=== PATIENT | male | born 1950 | race Caucasian/White ===

== ENCOUNTER → 2022-03-24 09:00 | Outpatient (CLI) | payer OTHER, SELFPAY ==
--- NOTE | 2022-03-24 | DI.RAD.S_ITS ---
PROCEDURE: FL BARIUM SWALLOW W SPEECH INDICATIONS: Dysphagia, unspecified COMPARISON: None. TECHNIQUE: Examination was conducted in conjunction with speech pathology per standard protocol. In the lateral projection, filming was performed of the patient swallowing. AP projection filming may also be performed with patient swallowing. COMPARISON: FINDINGS: Function: Normal oral preparatory phase. There is some prespillage into the pharynx with multiple consistencies, and a small amount residual. No tariq aspiration. . No laryngotracheal penetration or aspiration. No pathologic vallecular pooling. Morphology: No pathologic cricopharyngeal bar. No strictures. There is delayed passage of contrast and pill into the distal esophagus, partially evaluated. Anterior cervical fusion hardware is present. IMPRESSION: No tariq aspiration. Delayed contrast of contrast and tablet into the distal esophagus, partially evaluated. Please see speech pathologist's note for full details. Dictated by: Bryson Osorio M.D. on 03/24/2022 at 11:25 Approved by: Bryson Osorio M.D. on 03/24/2022 at 11:28
--- NOTE | 2022-03-24 10:44 | ST.SWALLOW ---
Visit Care Team Role Provider Type Jovany Leal MD Attending Provider Non-Staff Primary Care Provider Referring Provider Specialty: Family Practice Address: [address] [place] [address], [id number] Email: Modified Barium Swallow Study TIN FLIPPER Modified Barium Swallow Study Start: 03/24/22 10:01 Freq: Status: Active Protocol: Document 03/24/22 10:01 DEBI (Rec: 03/24/22 10:08 ZS [id number]) Modified Barium Swallow Study Total Time Visit Start Time 09:30 Visit Stop Time 09:50 Total Visit Minutes 20 Setting Setting Outpatient Care Patient Information Identification Type Name Patient History Willard is a 71 year old male who had C4-6 fused and has had difficulty swallowing worsening over the past 6-9 months. Pt reported difficulty swallowing is characterized by frequent coughing and a tickle in his throat (pointed to base of throat, high chest area). Pt stated coughing happens when he is not paying attention to swallow and is happening several times a week to once a day at this point. Subjective Observations Pt arrived on time and ambulated independently. Provided education regarding procedure and process and pt expressed understanding and agreed to participate. Patient Positioning Position View Lat-A/P Imaging Lateral View Textures Administered Trials Presented Thin Liquid via Cup,[place] Liquid via Cup,Regular Textures Oral Phase Source: MBSIMP (TM) (C) Bolus Specific Scoring Grid Lip Closure No Impairment (WNL) Tongue Control During Bolus Hold Mild Impairment Bolus Prep/Mastication No Impairment (WNL) Bolus Transport/Lingual Motion No Impairment (WNL) A/P Lingual Propulsion Delay No Oral Residue Mild Impairment Residue Clearing Minimal Impairment Nasal Regurgitation No Additional Oral Phase Observations No anterior loss of bolus. Minimal anterior loss of bolus during Lateral view tongue hold, however, large quantity of bolus was observed during A /P view prior to swallow initiation, which may indicate posterior loss of bolus that triggers a swallow response with high quantities of liquid . On lateral view, pt exhibited pooling in valleculae and base of tongue residue that was partially due to residue from previous swallow and partially due to posterior loss of bolus during tongue hold. Mastication and a/p propulsion of bolus were timely and efficient. Oral residue present following all swallows, which traveled over base of tongue and pooled in valleculae and pyriforms. Pt cleared residue with a prompted second swallow. Pharyngeal Phase Source: MBSIMP (TM) (C) Bolus Specific Scoring Grid Delayed Initiation of Pharyngeal Swallow Yes: Head of bolus in pyriforms Soft Palate Elevation No Impairment (WNL) Tongue Base Strength/Range of Motion No Impairment (WNL) Residue Along the Tongue Base Yes Clearance of Residue Along Tongue Base WFL Laryngeal Elevation No Impairment (WNL) Anterior Hyoid Movement Moderate Impairment Epiglottic Range of Motion No Impairment (WNL) Vallecular Residue Yes Clearance of Vallecular Residue WFL Laryngeal Vestibular Closure No Impairment (WNL) Pharyngeal Stripping Wave No Impairment (WNL) Pharyngeal Contraction No Impairment (WNL) Posterior Pharyngeal Wall Residue No Upper Esophageal Sphincter Opening No Impairment (WNL) Residue in the Pyriform Sinuses Yes Clearance of Residue in the Pyriform WFL Sinuses Additional Pharyngeal Phase Observations Delayed initiation of pharyngeal swallow, with head of the bolus in the pyriforms. Hyolaryngeal elevation was WNL, though excursion was moderately limited. Limited ROM of hyoid did not appear to impact laryngeal vestibular closure, as epiglottic inversion and laryngeal vestibular closure were WNL. Residue was present after all swallows, with residue originating from the oral cavity and moving to pool in valleculae and pyriforms. Pt observed to cough x1 while residue was observed to be dripping from valleculae to pyriforms, though x-ray was not running at that time, no aspiration was observed, and no residue was observed in trachea following cough. Residue was cleared with a second swallow, prompted by the TIN FLIPPER. No coughing observed with use of double swallow. A/P View Textures Administered Trials Presented Thin Liquid via Cup,Barium Tablet A/P View Observations Pharyngeal Contraction No Impairment (WNL) Esophageal Function Slowed Clearing,Reverse Peristalsis Esophageal Clearance Upright Position Moderate Impairment Additional Observations Pt presented with mild- moderate clearing of residue in esophagus. Residue present in esophagus following lateral trials prior to starting a/p trials. This was not cleared with a drink of water. Single trial of thin barium attempted due to residue reamining. Most of barium moved through esophagus to stomach with mild -moderate residue reamining following swallow. Reverse peristalsis observed and residue was not cleared by the end of the assessment. Barium tablet moved rapidly and then stopped. Continued movement with a second drink of water and cleared esophagus into stomach. Clinical Impressions Dysphagia Type Oropharyngeal dysphagia Findings The pt presents with mild- moderate oropharyngeal dysphagia characterized by posterior loss of bolus during tongue hold, and residue following swallow. Pt does not appear to aspirate during swallow, rather is likely experiencing aspiration/ penetration of residue following swallow. Coughing was reduced with implementation of double swallow. Recommend speech therapy to increase base of tongue strength and pharyngeal strength to improve swallow safety with oral intake. Recommend GI consult due to slowed clearing of bolus through esophagus and reverse peristalsis observed. Rehabilitation Potential Excellent Patient Appropriate for Therapy Yes Recommendations Diet Liquids Order Thin Diet Order Regular Medication Recommendation As Tolerated Aspiration Precautions Recommended Precautions Upright at 90 Degrees,Small Bites/Sips,Double Swallow Treatment Plan Therapy Recommendations Outpatient Speech Therapy, Lingual Exercises Recommended Referrals GI Consult Compensatory Strategies Recommendations Sitting Upright (90 deg), Double Swallow,Small Bites and Sips
== END ==
PROVIDERS: PCP Family Medicine; Referring Provider Family Medicine; Visit Provider Family Medicine
DX: R13.10 Dysphagia, unspecified (principal)
CPT/HCPCS: 74230; 92611

== ENCOUNTER 2022-06-23 10:30 | Outpatient (RCR) | payer OTHER, SELFPAY ==
--- NOTE | 2022-04-25 16:25 | ST.IPCSEOM ---
Visit Care Team Role Provider Type Jovany Leal MD Family Provider Non-Staff Primary Care Provider Specialty: Family Practice Address: [address] [place] [address], [id number] Email: Ceci Holder PA-C Attending Provider Non-Staff Referring Provider Specialty: Medical Address: [facility], [address] [place] [address] [address], [place], [address] Email: Current Diagnoses Dysphagia, unspecified (04/25/22) Speech-Language Pathology Swallow Evaluation GREEN FEED ATTENDANT Clinical Swallow Evaluation Start: 04/25/22 15:54 Freq: Status: Active Protocol: Document 04/25/22 15:55 LNK (Rec: 04/25/22 16:23 LNK [id number]) Clinical Swallow Evaluation Session Time Visit Start Time 14:30 Visit Stop Time 15:30 Total Visit Minutes 60 Visit Information Visit Number 1 Plan of Care Dates 04/25/22-07/26/[address] Ceci De La Torre Reason for Referral dysphagia Setting Assessment Location Outpatient Care Visit Type Note Type Initial evaluation Next Note Type Next Note Type Treatment Note Patient Information Identification Type Name,Date of History Willard is a 71 year old male who had C4-6 fused and has had difficulty swallowing worsening over the past 6-9 months. Pt reported difficulty swallowing is characterized by frequent coughing and a tickle in his throat (pointed to base of throat, high chest area). Pt stated coughing happens when he is not paying attention to swallow and is happening several times a week to once a day at this point. MBSS results (03/24/22) indicated the pt presents with mild-moderate oropharyngeal dysphagia characterized by posterior loss of bolus during tongue hold, and residue following swallow. Pt does not appear to aspirate during swallow, rather is likely experiencing aspiration/ penetration of residue following swallow. Coughing was reduced with implementation of double swallow. Recommend speech therapy to increase base of tongue strength and pharyngeal strength to improve swallow safety with oral intake. Recommend GI consult due to slowed clearing of bolus through esophagus and reverse peristalsis observed. Reported by Patient Other Symptoms Coughing,Difficulty swallowing solids,Food gets stuck,Pain on swallowing Current Diet Regular,Thin liquids Baseline Feeding Method Independent in self-feeding Objective Assessment Mental Status Alert,Responsive,Cooperative Oral Integrity WFL Dentition Within normal limits Lip Function Within normal limits Tongue Function Within normal limits Jaw Function Within normal limits Hard/Soft Palate Function Within normal limits Food and Liquid Trials Position During Assessment Upright (90 degrees) Fatigue/Endurance Endurance WNL Comment PO trials were not performed. Pt education re: normal swallow vs. pt's MBSS results were reviewed. A CG horace of a normal swallow was used to as an example of a normal swallow . Pt then reviewed his MBSS results with the GREEN FEED ATTENDANT. The areas of concern were brought to the pt's attention relative to aspiration risk. Pt indicated that he was appreciative of the information. Safe swallow strategies were then described (i.e., double swallow and effortful swallow). In addition base of tongue and pharyngeal exercises were described (i.e., Misako, Shaker, glottal closure/ adduction) to increase base of tongue strength to improve epiglottal inversion and increase closure strength of the laryngeal vestibule. Written information of safe swallow strategies and instructions for the exercises were provided to the pt. He indicated he understood and agreed with the POC. All questions were answered to the pt's satisfaction. Strategies Attempted Effortful swallow,Other Findings Swallowing Function Oropharyngeal phase dysphagia Severity of Swallow Impairment Mildly impaired Contributing Factors to Swallow Reduced oral strength/ Impairment coordination/sensation, Impaired airway protection, Excessive pharyngeal residue Comments s/p ACDF surgery Prognosis Good Based on Cognitive status,Age,Duration of symptoms/severity Comments Mild aspiration risk Recommendations Instrumental Assessment No Swallowing Treatment Yes Frequency weekly initially then every 3 weeks Recommended Solids Regular Recommended Liquids Thin Safety Precautions/Swallowing Remain upright (90 degrees) Recommendations during all oral intake,Slow rate; swallow between bites, Alternate liquids and solids Medication Recommendations As Tolerated Referrals Recommended Referrals Gastroenterology Education Patient/Caregiver Education Described results of evaluation,Patient expressed understanding of evaluation, Patient expressed agreement with goals & treatment plans, Patient expressed understanding of safety precautions Goals Short-term Goals pt will perform HEP exercises and safe swallow strategies daily as prescribed. Pt will report a decrease of coughing during meals. Pt will undergo a repeat MBSS in 3 months to determine efficacy of linguapharyngeal exercises.
--- NOTE | 2022-04-25 16:26 | ST.OPPOC ---
Physical, Occupational & Speech Therapy At [facility] Visit Care Team Role Provider Type Jovany Leal MD Family Provider Non-Staff Primary Care Provider Address: [address] [place] [address], [place], [address] Ceci Holder PA-C Attending Provider Non-Staff Referring Provider Address: [facility], [address], [place], [address] Speech Pathology Plan of Care Plan of Care Dates 04/25/22-07/26/[address] Ceci De La Torre Patient History Willard is a 71 year old male who had C4-6 fused and has had difficulty swallowing worsening over the past 6-9 months. Pt reported difficulty swallowing is characterized by frequent coughing and a tickle in his throat (pointed to base of throat, high chest area). Pt stated coughing happens when he is not paying attention to swallow and is happening several times a week to once a day at this point. MBSS results () indicated the pt presents with mild-moderate oropharyngeal dysphagia characterized by posterior loss of bolus during tongue hold, and residue following swallow. Pt does not appear to aspirate during swallow, rather is likely experiencing aspiration/penetration of residue following swallow. Coughing was reduced with implementation of double swallow. Recommend speech therapy to increase base of tongue strength and pharyngeal strength to improve swallow safety with oral intake. Recommend GI consult due to slowed clearing of bolus through esophagus and reverse peristalsis observed. Short-term Goals pt will perform HEP exercises and safe swallow strategies daily as prescribed. Pt will report a decrease of coughing during meals. Pt will undergo a repeat MBSS in 3 monthjs to determine efficacy of linguapharyngeal exercises. Comment: Electronically Signed by: FLORINDA Astudillo 04/25/22 2655 If you are in agreement with this Plan of Care, please return a signed and dated copy. I have reviewed this Plan of Care and certify that the skilled therapy services above are required to meet the patient?s needs. Physician Signature Date Printed Name and Credentials Clinical Instructor Signature Printed Name and Credentials
--- NOTE | 2022-05-02 16:45 | ST.IPDYTX ---
Visit Care Team Role Provider Type Jovany Leal MD Family Provider Non-Staff Primary Care Provider Specialty: Family Practice Address: [address] [place] [address], [place], [address] Email: Ceci Holder PA-C Attending Provider Non-Staff Referring Provider Specialty: Medical Address: [facility], [address] [place] [address] [address], [place], [address] Email: RESIDENTIAL COUNSELOR Dysphagia Treatment RESIDENTIAL COUNSELOR Dysphagia Treatment Start: 04/25/22 15:54 Freq: Status: Active Protocol: Document 05/02/22 16:35 LNK (Rec: 05/02/22 16:45 LNK [id number]) Dysphagia Treatment Session Time Visit Start Time 14:30 Visit Stop Time 15:15 Total Visit Minutes 45 Visit Information Visit Number 2 Plan of Care Dates 04/25/22-07/26/22 Setting Assessment Location Outpatient Care Visit Type Note Type Treatment Note Next Note Type Next Note Type Treatment Note Patient Information Identification Type Name,Date of Subjective Observations Pt arrived on time. he is a pleasant man to work with. Treatment Treatment Activities Reviewed swallowing exercises with the pt. He reported that he has been doing all exercises daily. He had questions pertaining to some of the exercises, which were answered to the pt's satisfaction. He also reported that he has become more mindful of his swallowing and a sipping behavior that draws in air when he drinks. He noted that he is working to not do that; a bad habit he stated. Will f/u with pt in 3 weeks Assessment Patient Response to Treatment Good Diet Recommendations Recommendations Continue Current Diet Liquids Order Thin Medication Recommendations As Tolerated Aspiration Precautions Recommended Precautions Upright at 90 Degrees, Effortful Swallow,Double Swallow,Supraglottic Swallow, Prasad Maneuvor Treatment Plan Appropriate for Continued Therapy Yes Dysphagia Goals pt will perform HEP exercises and safe swallow strategies daily as prescribed. Pt will report a decrease of coughing during meals. Pt will undergo a repeat MBSS in 3 months to determine efficay of linguapharyngeal exercises.
--- NOTE | 2022-06-02 11:36 | ST.IPDYTX ---
Visit Care Team Role Provider Type Jovany Leal MD Family Provider Non-Staff Primary Care Provider Specialty: Family Practice Address: [address] [place] [address], [place], [address] Email: Ceci Holder PA-C Attending Provider Non-Staff Referring Provider Specialty: Medical Address: [facility], [address] [place] [address] [address], [place], [address] Email: HEALTH FACILITIES SURVEYOR Dysphagia Treatment HEALTH FACILITIES SURVEYOR Dysphagia Treatment Start: 04/25/22 15:54 Freq: Status: Active Protocol: Document 06/02/22 11:10 LNK (Rec: 06/02/22 11:35 LNK [id number]) Dysphagia Treatment Session Time Visit Start Time 10:30 Visit Stop Time 11:00 Total Visit Minutes 30 Visit Information Visit Number 3 Plan of Care Dates 04/25/22-07/26/22 Setting Assessment Location Outpatient Care Visit Type Note Type Treatment Note Next Note Type Next Note Type Treatment Note Patient Information Identification Type Name,Date of Subjective Observations Pt arrived on time. he is a pleasant man to work with. Treatment Treatment Activities Reviewed swallowing exercises with the pt. He reported that he has been doing all exercises daily. He had questions pertaining to some of the exercises, which were answered to the pt's satisfaction. He also reported that he has become more mindful of his swallowing and lifelong bad habits (i. e, talking when eating, guzzling liquids, distracted, etc.) that have resulted in significantly reducing the choking episodes when swallowing the wrong way. Will f/u with pt in 3 weeks. Assessment Patient Response to Treatment Good Diet Recommendations Recommendations Continue Current Diet Liquids Order Thin Diet Order Regular Medication Recommendations As Tolerated Aspiration Precautions Recommended Precautions Upright at 90 Degrees, Effortful Swallow,Double Swallow,Supraglottic Swallow, Prasad Maneuvor Treatment Plan Appropriate for Continued Therapy Yes Dysphagia Goals pt will perform HEP exercises and safe swallow strategies daily as prescribed. Pt will report a decrease of coughing during meals. Pt will undergo a repeat MBSS in 3 months to determine efficacy of linguapharyngeal exercises. Referrals/Other Recommended Referrals GI Consult
--- NOTE | 2022-06-23 11:08 | ST.IPDYTX ---
Visit Care Team Role Provider Type Jovany Leal MD Family Provider Non-Staff Primary Care Provider Specialty: Family Practice Address: [address] [place] [address], [place], [address] Email: Ceci Holder PA-C Attending Provider Non-Staff Referring Provider Specialty: Medical Address: [facility], [address] [place] [address] [address], [place], [address] Email: BATTERY HAND Dysphagia Treatment BATTERY HAND Dysphagia Treatment Start: 04/25/22 15:54 Freq: Status: Active Protocol: Document 06/23/22 10:34 LNK (Rec: 06/23/22 11:08 LNK [id number]) Dysphagia Treatment Session Time Visit Start Time 10:30 Visit Stop Time 11:00 Total Visit Minutes 30 Visit Information Visit Number 3 Plan of Care Dates 04/25/22-07/26/22 Setting Assessment Location Outpatient Care Visit Type Note Type Treatment Note Next Note Type Next Note Type Treatment Note Patient Information Identification Type Name,Date of Subjective Observations Pt arrived on time. he is a pleasant man to work with. Treatment Treatment Activities Reviewed swallowing exercises with the pt. He reported that he has been doing all exercises daily. He had questions pertaining to some of the exercises, which were answered to the pt's satisfaction. He also reported that he has become more mindful of his swallowing . Pt has noted that he is able to self-correct if he has something in his throat that may cause him to cough. Pt will be discharged from - Goals met Assessment Patient Response to Treatment Good Diet Recommendations Recommendations Continue Current Diet Liquids Order Thin Diet Order Regular Medication Recommendations As Tolerated Aspiration Precautions Recommended Precautions Upright at 90 Degrees, Effortful Swallow,Double Swallow,Supraglottic Swallow, Prasad Maneuvor Treatment Plan Appropriate for Continued Therapy Yes Dysphagia Goals pt will continue HEP exercises and safe swallow strategies daily as prescribed. Pt will maintain a decrease of coughing during meals. Referrals/Other Recommended Referrals GI Consult
--- NOTE | 2022-06-23 11:11 | ST.IPDYTX ---
Visit Care Team Role Provider Type Jovany Leal MD Family Provider Non-Staff Primary Care Provider Specialty: Family Practice Address: [address] [place] [address], [address] Email: Ceci Holder PA-C Attending Provider Non-Staff Referring Provider Specialty: Medical Address: [facility], [address] [place] [address] [address], [place], [address] Email: TITLE CAMERA OPERATOR Dysphagia Treatment TITLE CAMERA OPERATOR Dysphagia Treatment Start: 04/25/22 15:54 Freq: Status: Active Protocol: Document 06/23/22 11:09 CAROLYNK (Rec: 06/23/22 11:11 LNK [id number]) Dysphagia Treatment Setting Assessment Location Outpatient Care Visit Type Note Type Discharge Summary Patient Information Identification Type Name,Date of Subjective Observations Pt arrived on time. he is a pleasant man to work with. Treatment Treatment Activities Reviewed swallowing exercises with the pt. He reported that he has been doing all exercises daily. He had questions pertaining to some of the exercises, which were answered to the pt's satisfaction. He also reported that he has become more mindful of his swallowing . Pt has noted that he is able to self-correct if he has something in his thraot that may cause him to cough. Pt will be discharged from ST - Goals met Aspiration Precautions Recommended Precautions Upright at 90 Degrees, Effortful Swallow,Double Swallow,Supraglottic Swallow, Prasad Maneuvor Treatment Plan Appropriate for Continued Therapy No Therapy Recommendations Discharge from therapy- Goals Met Referrals/Other Recommended Referrals GI Consult
== END 2022-06-25 09:34 | disposition home or self-care (01) ==
LOC: SP 10:30
PROVIDERS: Family Provider Family Medicine; PCP Family Medicine; Referring Provider Physician Assistant; Visit Provider Physician Assistant
DX: R13.10 Dysphagia, unspecified (principal)
CPT/HCPCS: 92526; 92610

== ENCOUNTER → 2023-07-03 12:36 | Outpatient (CLI) | payer OTHER, SELFPAY ==
--- NOTE | 2023-07-03 | DI.CT.S_ITS ---
PROCEDURE: CT LE LT W CON INDICATIONS: FOOT PAIN TECHNIQUE: Noncontrast 1-1.5 mm axial sections acquired from above the tibiotalar joint to the bottom of the calcaneus, with coronal and sagittal reformats. COMPARISON: [facility] [place], CR, XR ANKLE 3 VIEWS WEIGHT BEARING BILATERAL, 06/23/2023, 13:29. FINDINGS: Image quality: Excellent. Bones: No acute osseous fracture or dislocation. Moderate degenerative changes are seen at the mortise joint with subchondral cystic changes and marginal osteophytes. There is hindfoot valgus alignment. Severe degenerative changes are seen at the subtalar joint with subchondral sclerosis, subchondral cystic changes, marginal osteophyte formation. A few ossifications are seen lateral to the subtalar joint. Relatively mild degenerative changes are seen in the midfoot. There is severe 1st metatarsophalangeal and metatarsal sesamoid osteoarthrosis. Scattered degenerative changes are seen at the interphalangeal joints of the toes. Soft tissues: Moderate tibiotalar effusion with suspected ossified intra-articular loose body anteriorly. The articular cartilages, ligaments, and tendons are not well evaluated with CT. However, there is suspected anterior subluxation of the peroneal tendons. The visualized musculature demonstrates mild diffuse grade 2 fatty infiltration. IMPRESSION: 1. Severe subtalar osteoarthrosis. Small ossifications lateral to the subtalar joint may represent loose bodies or heterotopic calcifications. 2. Moderate mortise joint osteoarthrosis with a moderate joint effusion and a few small ossified intra-articular loose bodies. 3. Hindfoot valgus alignment. 4. Severe 1st metatarsophalangeal osteoarthrosis. 5. Suspected anterior subluxation of the peroneus brevis and longus tendons. Approved by: Douglas Cassidy M.D. on 07/05/2023 at 10:26
--- NOTE | 2023-07-03 | DI.CT.S_ITS ---
PROCEDURE: CT LE RT WO CON INDICATIONS: FOOT PAIN TECHNIQUE: Noncontrast 1-1.5 mm axial sections acquired from above the tibiotalar joint to the bottom of the calcaneus, with coronal and sagittal reformats. COMPARISON: [facility] [place], CR, XR ANKLE 3 VIEWS WEIGHT BEARING BILATERAL, 06/23/2023, 13:29. FINDINGS: Image quality: Excellent. Bones: No acute osseous fracture. Postsurgical changes are seen from mortise joint arthrodesis with multiple metal screws. The distal portion of a fractured screw is seen within the distal tibia. The proximal component of the screw appears to have been removed. A transsyndesmotic screw is seen that is intact. There is solid osseous fusion across the mortise joint. Oblique lucency is seen at the distal fibular shaft with corticated margins, consistent with prior fracture or osteotomy with nonunion. There is chronic hindfoot valgus. Severe degenerative changes are seen at the subtalar joint with subchondral sclerosis, subchondral cystic changes, and remodeling of the articular surfaces. Moderate talonavicular degenerative changes. Moderate to severe 1st metatarsophalangeal and metatarsal sesamoid osteoarthrosis. Scattered degenerative changes are seen at the interphalangeal joints of the toes. Soft tissues: Multiple calcifications are seen lateral to the posterior subtalar facet. No significant effusion. The articular cartilages, ligaments, and tendons are not well evaluated with CT. The visualized musculature demonstrates mild grade 2 fatty infiltration. IMPRESSION: 1. Postsurgical changes from prior mortise joint arthrodesis with solid osseous fusion across the joint line. Oblique lucency with corticated margins through the distal fibular shaft may be related to prior fracture or surgery with chronic nonunion. 2. Severe subtalar osteoarthrosis. Multiple ossifications are seen lateral to the subtalar joint that may represent loose bodies or heterotopic ossifications. 3. Hindfoot valgus. 4. Moderate to severe 1st metatarsophalangeal osteoarthrosis. Approved by: Douglas Cassidy M.D. on 07/05/2023 at 10:27
== END ==
LOC: CT 12:37
PROVIDERS: Family Provider Family Medicine; PCP Family Medicine; Referring Provider Orthopaedic Surgery Foot and Ankle Surgery; Visit Provider Orthopaedic Surgery Foot and Ankle Surgery
DX: M19.071 Primary osteoarthritis, right ankle and foot (principal); M19.072 Primary osteoarthritis, left ankle and foot; M21.072 Valgus deformity, not elsewhere classified, left ankle; M21.071 Valgus deformity, not elsewhere classified, right ankle; M25.571 Pain in right ankle and joints of right foot; M79.672 Pain in left foot; Z98.1 Arthrodesis status
CPT/HCPCS: 73700

== ENCOUNTER → 2023-07-11 11:58 | Outpatient (CLI) | payer OTHER, SELFPAY ==
[2023-07-11 12:35] LABS: Add Manual Diff / Slide Review NO; Basophils Absolute Auto 0 /uL (0-100); Basophils Percent Auto 0.8 % (0-2); Eosinophils Absolute Auto 100 /uL (0-450); Eosinophils Percent Auto 2.8 % (2-4); Hemoglobin 15.8 g/dL (13.5-17.5); Lymphocytes Absolute Auto 900 /uL (1100-4500); Lymphocytes Percent Auto 21.9 % (25-40); Mean Corpuscular HGB Conc 35.8 % (30-36); Mean Corpuscular Hemoglobin 31.8 PG (26-34); Mean Corpuscular Volume 88.9 fL (80-100); Monocytes Absolute Auto 400 /uL (0-900); Monocytes Percent Auto 10.9 % (3-14); Neutrophils Absolute Auto 2600 /uL (1500-7000); Neutrophils Percent Auto 63.6 % (50-75); Platelet Count 196 X10^3/uL (150-400); Red Blood Cell Count 4.96 X10^6/uL (4.5-5.9); Red Cell Distribution Width 13.9 % (11.6-14.8); White Blood Cell Count 4.1 X10^3/uL (4.5-11.0)
[2023-07-11 12:48] LABS: Hemoglobin A1C% w Est Avg Glu 4.5 % (4.0-6.0)
[2023-07-11 15:00] LABS: BUN Creatinine Ratio 30.1 (6-22); Blood Urea Nitrogen 28 mg/dL (9-20); Calcium 9.8 mg/dL (8.4-10.2); Carbon Dioxide 26 mmol/L (22-32); Chloride 106 mmol/L (98-107); Estimated Glomerular Filt Rate > 60 mL/min (>60); Glucose 92 mg/dL (80-110); HEMOLYSIS < 15 (0-50); Sodium 140 mmol/L (137-145)
== END ==
LOC: LAB 11:59
PROVIDERS: Family Provider Family Medicine; PCP Family Medicine; Referring Provider Orthopaedic Surgery Foot and Ankle Surgery; Visit Provider Orthopaedic Surgery Foot and Ankle Surgery
DX: Z01.818 Encounter for other preprocedural examination (principal); Z01.812 Encounter for preprocedural laboratory examination; R73.9 Hyperglycemia, unspecified
CPT/HCPCS: 36415; 80048; 83036; 85025; 93005

== ENCOUNTER 2023-10-07 09:50 | Day surgery (SDC) | payer OTHER, SELFPAY ==
[2023-10-05 10:48] VITALS: BMI 26.7
[2023-10-07] VITALS (8 sets, daily range): BP systolic 95–117; BP diastolic 65–78; PULSE 70–87; RESP 12–16; TEMP 36.3–36.9; O2SAT 94–98; BMI 26.7
--- NOTE | 2023-10-07 | DI.RAD.S_ITS ---
PROCEDURE: XR FOOT LT 2V INDICATIONS: INTRA TECHNIQUE: Low resolution intraoperative fluoroscopic spot films COMPARISON: None. FINDINGS: Low resolution intraoperative fluoroscopic spot films show threaded screws traversing a calcaneal fracture IMPRESSION: 1. Fluoroscopic guidance Approved by: Guy Waters M.D. on 10/07/2023 at 19:44
[2023-10-07] MEDS: LACTATED RINGERS 1,000 ML 42 ML IV ×2 (11:01→14:19)
--- NOTE | 2023-10-07 11:44 | PM.PREOP ---
Pre-operative Note Interval Note History & Physical reviewed/Exam performed by Physician: Yes Changes to H&P: No
--- NOTE | 2023-10-07 12:30 | P.OP_ITS ---
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 He has a remote history of a right ankle fusion with [facility] that had to have a revision fusion after a nonunion. He has developed a worsening pes planovalgus and left subtalar arthritis on the left side. He is failed conservative treatment with arch supports and braces. The risks and benefits of the procedure have been discussed with the patient and given the opportunity to ask questions. The risks of surgery include but are not limited to infection, malunion, nonunion, persistence of pain, damage to nerves and blood vessels, posttraumatic arthritis, DVT, PE, coardiopulmonary complications and . The patient expressed a thorough understanding of the risks and benefits of surgery and has elected to proceed. Consent was signed in the office During the operation, the services of a physician surgical lead were medically indicated and necessary to provide the exposure of the operative site for the surgical procedure and to maintain the limb in a proper position to carry out the operation safely and efficiently. Without a qualified shipping and receiving assistant being present this would extended the operative procedure and made the procedure technically more difficult to perform. Surgeon: Autumn Ott Ramp Flight Attendant: Nick Brewer Anesthesia Type: Spinal and Local Operative Notes Findings: Extensive subtalar arthritis was rigid pes planovalgus deformity and Achilles contracture. Severe valgus with sub fibular impingement. Achilles lengthening was performed in order to correct to neutral. On reduction of subtalar joint there was still residual valgus therefore separate medializing calcaneal osteotomy was completed to obtain appropriate hindfoot alignment. Stability was achieved with 7.0 screws from the set Closure Type: primary Specimen(s): none sent Prosthetic devices, grafts, tissues, transplants, or devices: [place] 28 7.0 headed cannulated screws fully threaded 80 mm and 84 mm [place] 287.0 headless long thread cannulated screw 90 mm Estimated Blood Loss (mL): 150 Blood products transfused: none Tourniquet time (min): 97 Procedure in detail: Patient was seen in the preoperative area the site of surgery marked informed consent confirmed. The patient was brought back to the operating room by the anesthesia team and positioned. Spinal anesthetic was administered. The patient was then positioned into the lateral decubitus position on the beanbag with the left side up. All bony prominences well padded. A well-padded axillary roll was placed. A well-padded thigh tourniquet was placed. down leg had an SCD on and was well padded. The right lower extremity was prepped and draped in standard sterile fashion a formal time-out procedure was performed confirming the patient's side and site of surgery administration of appropriate preoperative antibiotic. All were in agreement. Attention turned to the left lower extremity the Esmarch was used to exsanguinate the extremity and the tourniquet raised to 250 mm of mercury. The deformity was a rigid pes planovalgus. The foot was held in dorsiflexion and 3 small incisions were made along the Achilles tendon for the Achilles tendon lengthening. Achilles tendon lengthenin separate posterior incisions were made at 2, 4 and 6 cm above the calcaneal insertion of the Achilles. The distal and proximal incisions were made with a frantz section to the lateral side and the central incision was made with a frantz section of the Achilles tendon to the medial side. This was done under dorsiflexion tension creating a palpable and audible stretch/lengthening of the Achilles tendon. Subtalar fusion. Attention was then turned to the lateral foot. A curved incision was taken from just posterior to the fibula along the distal fibula and sinus tarsi towards the base of the 4th metatarsal. This was taken down through the skin subcutaneous tissue. This was extended more proximally than normal due to the severely tendinosis peroneal tendons where it tendinotic, torn and chronically subluxed. The peroneal tendon sheath was opened the tendinotic peroneal tendons were exposed and excised. Distally the extensor digitorum brevis was elevated and reflected distally. The sinus tarsi was then entered. Suppressive dissection was carried out in the sinus tarsi. Loose ossicles were removed. A combination of osteotomes and curette was used to prepare the subtalar joint which was severely eburnated. The K-wire distractor as well as lamina spreaders were applied to reach all the way medially to the FHL. This was prepped with a curette osteotomes followed by the bur and then finally the prep drill and fish scale are to good cancellous bone. Trial reductions were done medializing the calcaneus and pinning in place. Alignment was checked and was felt to still have some excessive valgus therefore the decision was made for a medializing calcaneal osteotomy. That is detailed below. Once the medializing calcaneal osteotomy was completed attention was then returned to the subtalar joint and the 5 cc of DBM putty was applied to the talus and calcaneus. The calcaneus was reduced as medially as possible and fixed up with K-wires and checked under fluoroscopy. Once this was satisfactory the wires were overdrilled and the subtalar fusion was fixed with 1 proximal to distal 7.0 long thread headless screw from the paragon 28 set and from distal to proximal with a fully-threaded lag by technique 7.0 headed paragon 28 cannulated screw. Medialized and calcaneal osteotomy: Due to residual valgus and medialized and calcaneal osteotomy was completed to achieve neutral hindfoot alignment. Separate incision was made posterior to the subtalar incision this was made along the calcaneal tuberosity as far posterior as possible. Care was taken to avoid the sural nerve. Dissection was taken down to the level of the lateral wall of the calcaneus and periosteum was elevated. K-wire was directed across the calcaneus as a guide. Baby Homans were placed proximally and distally and a large saw was used to make the calcaneus osteotomy. This was taken to the level of the medial cortex which was then completed using an osteotome. Periosteum was elevated medially and the osteotomy mobilized about 4 mm medially and then pinned. Alignment radiographs were checked with intraoperative C-arm that demonstrated appropriate correction of the hindfoot alignment to neutral. This was then pinned with K-wire overdrilled and secured with a fully-threaded lag by technique cannulated screw from the paragon 28 set. Once this was achieved final fluoroscopic x-rays in lateral, axial and AP ankle confirmed appropriate placement of hardware without prominence. Once this was completed tourniquet was released hemostasis was achieved. Wounds were irrigated and closed with 2-0 Vicryl 3-0 Vicryl 4-0 Monocryl and 3-0 nylon suture. 30 cc of 0.25% Marcaine with epinephrine was injected as local anesthetic. A well-padded Petersen style bulky splint was applied with you and posterior slabs in neutral position. The patient was awoken from anesthesia and taken to recovery room in good condition there were no immediate complications from this procedure. All counts were correct. Complications: none Post-operative Condition: stable Disposition: PACU Plan for aftercare: Toe-touch or nonweightbearing on the left lower extremity. Elevate heart level or above as much as possible after surgery to help with swelling. Keep splint clean dry and intact. Take medications as prescribed. We will take aspirin 325 mg daily for DVT prophylaxis. Follow up as scheduled in Orthopedic surgery Clinic.
[2023-10-07] MEDS: CEFAZOLIN 2 GM/100 ML PREMIX 100 ML IV (12:55)
[2023-10-07] MEDS: BUPIVACAINE 0.25% (PF) 30 ML, EPINEPHrine 0.15 MG INJ (13:11)
--- NOTE | 2023-10-07 13:15 | SUR.OPER ---
Lateral on padded OR bed with raphael bag positioner, head on pillow, gel axillary roll in place, bottom leg bent with gel pad under knee to foot, upper leg straight and supported with pillows ON FIELD. ARMS secured on padded arm board WITH PILLOWS IN BETWEEN. Safety belt at hip, tape over blanket securing lower RIGHT leg.
[2023-10-07] MEDS: TAMSULOSIN 0.4 MG CAPSULE PO (17:59)
--- NOTE | 2023-10-07 18:16 | SUR.PHASEII ---
1730 pt unable to urinate bladder scan showed 750ml MD notified straight cath performed with 800ml output of clear yellow urine pt tolerated well 1800 discussed plan for safe discharge including risk of continued urinary retention, safely getting into and around his home tonight, pt and spouse verbalize understanding. Pt was able to transfer to wheelchair and to car independently, distal cms intact to injured ext
== END 2023-10-07 18:56 | disposition home or self-care (01) ==
LOC: OR 11:49 → AC 16:15
PROVIDERS: Family Provider Family Medicine; PCP Family Medicine; Referring Provider Orthopaedic Surgery Foot and Ankle Surgery; Visit Provider Orthopaedic Surgery Foot and Ankle Surgery
PROC: (CPT 27870; principal; 2023-10-07 11:45)
DX: M19.072 Primary osteoarthritis, left ankle and foot (principal); M21.072 Valgus deformity, not elsewhere classified, left ankle; M67.02 Short Achilles tendon (acquired), left ankle
CPT/HCPCS: 28725; 27685; 28300; 73620; 76000; 93010; C1776; C1713; J0171; J0690; J1100; J2405; J2704; J3490

== ENCOUNTER 2024-03-02 16:59 | Observation (INO) | payer OTHER, SELFPAY ==
[2024-03-02] VITALS (10 sets, daily range): BP systolic 106–136; BP diastolic 69–92; PULSE 60–79; RESP 12–22; TEMP 36.1–36.4; O2SAT 97–99; BMI 25.7
--- NOTE | 2024-03-02 | DI.RAD.S_ITS ---
PROCEDURE: XR ANKLE LT MIN 3V INDICATIONS: DEBRIDEMENT WITH HARDWARE REMOVAL TECHNIQUE: Three intraoperative fluoroscopic spot views of the ankle were acquired. COMPARISON: None. FINDINGS: Views of the ankle demonstrate grossly normal mortise alignment. Irregularity of the subtalar joints but grossly normal hindfoot bone alignment. IMPRESSION: Normal bone alignment without unexpected fracture. Dictated by: Nereyda Cesar M.D. on 03/02/2024 at 17:06 Approved by: Nereyda Cesar M.D. on 03/02/2024 at 17:06
[2024-03-02] MEDS: VANCOMYCIN 1,000 MG/200 ML PIGGYBACK 200 MG IV (13:09)
[2024-03-02] MEDS: LACTATED RINGERS 1,000 ML 42 ML IV ×2 (13:09→16:20)
[2024-03-02 13:14] LABS: Add Manual Diff / Slide Review NO; Basophils Absolute Auto 0 /uL (0-100); Basophils Percent Auto 0.7 % (0-2); Eosinophils Absolute Auto 100 /uL (0-450); Eosinophils Percent Auto 2.5 % (2-4); Hematocrit 39.7 % (41-53); Hemoglobin 13.9 g/dL (13.5-17.5); Lymphocytes Absolute Auto 600 /uL (1100-4500); Lymphocytes Percent Auto 13.9 % (25-40); Mean Corpuscular HGB Conc 34.9 % (30-36); Mean Corpuscular Hemoglobin 29.5 PG (26-34); Mean Corpuscular Volume 84.4 fL (80-100); Monocytes Absolute Auto 500 /uL (0-900); Monocytes Percent Auto 12.4 % (3-14); Neutrophils Absolute Auto 3100 /uL (1500-7000); Neutrophils Percent Auto 70.5 % (50-75); Platelet Count 245 X10^3/uL (150-400); Red Cell Distribution Width 14.7 % (11.6-14.8); White Blood Cell Count 4.4 X10^3/uL (4.5-11.0)
[2024-03-02 13:28] LABS: BUN Creatinine Ratio 25.6 (6-22); Blood Urea Nitrogen 22 mg/dL (9-20); C-Reactive Protein Quant 3.4 mg/dL (<1.0); Calcium 9.4 mg/dL (8.4-10.2); Carbon Dioxide 26 mmol/L (22-32); Chloride 103 mmol/L (98-107); Estimated Glomerular Filt Rate > 60 mL/min (>60); Glucose 86 mg/dL (80-110); HEMOLYSIS < 15 (0-50); Sodium 138 mmol/L (137-145)
[2024-03-02 13:31] LABS: Erythrocyte Sedimentation Rate 20 MM/HR (0-15)
--- NOTE | 2024-03-02 14:17 | PM.PREOP ---
Pre-operative Note Interval Note History & Physical reviewed/Exam performed by Physician: Yes Changes to H&P: No
[2024-03-02] MEDS: CEFAZOLIN 2 GM/100 ML PREMIX 100 ML IV (14:49)
--- NOTE | 2024-03-02 15:27 | SUR.OPER ---
Supine on padded OR bed, head on pillow, arms secured on padded arm boards at <90 degrees abduction, legs uncrossed, safety belt at thigh, tape over blanket over non-op leg
[2024-03-02] MEDS: VANCOMYCIN 1,000 MG VIAL 1000 MG TOP (15:45)
[2024-03-02] MEDS: BUPIVACAINE 0.25% (PF) 30 ML, EPINEPHrine 0.15 MG INJ (16:00)
--- NOTE | 2024-03-02 16:51 | P.OP_ITS ---
Operative Date/Time/Diagnoses Date of procedure: 03/02/24 Time of procedure: 15:00 Pre-op diagnosis: Arthritis left subtalar joint, infected hardware left lower extremity, osteomyelitis Post-op diagnosis: same Procedure & Clinicians Procedure: Removal of hardware deep implant CPT 77864 Removal of hardware deep implant CPT 08668 +59 separate incision Manual prep and insertion of the drug delivery device antibiotic beads CPT code 04884 Same procedure as scheduled: Yes Indications: Patient was a 73-year-old male status post subtalar fusion October 07, 2023. During recovery he had a small area that opened up near his minimally invasive calcaneal osteotomy this was cultured at an outside hospital which was [facility]. He was treated initially on Keflex then also had Bactrim and doxy this cleared up and he was doing reasonably well. He presented on 03/01 with a new acute increased swelling and pain over several days. He denied any fevers or chills. He was found to have a abscess at the level of the sinus tarsi without any wounds or erythema but there was fluctuance and purulence on aspiration. Radiographs demonstrated lucency around the screws concerning for loosening.. He was indicated for surgery for hardware removal and irrigation and debridement. The risks and benefits of the procedure have been discussed with the patient and given the opportunity to ask questions. The risks of surgery include but are not limited to infection, malunion, nonunion, persistence of pain, damage to nerves and blood vessels, posttraumatic arthritis, DVT, PE, coardiopulmonary complications and . The patient expressed a thorough understanding of the risks and benefits of surgery and has elected to proceed. Consent was signed/ During the operation, the services of a physician surgical supplies sterilizer were medically indicated and necessary to provide the exposure of the operative site for the surgical procedure and to maintain the limb in a proper position to carry out the operation safely and efficiently. Without a qualified clinical services assistant being present this would extended the operative procedure and made the procedure technically more difficult to perform. Surgeon: Autumn Ott Mortgage Field Inspector: Nick Brewer Anesthesia Type: General and Local Operative Notes Findings: Abscess lateral sinus tarsi incision tracking deep to the sinus tarsi. No wounds. No erythema. Calf soft. Three incisions were made over the left foot the 1st was reopening the sinus tarsi incision to perform the debridement of skin peroneal tendon subcutaneous tissue and bone at the sinus tarsi. Separate medial dorsal incision was made to remove the anterior to posterior screw and this bone tunnel was curetted and then later antibiotic beads were placed within the bone tunnel. A 3rd incision was made at the plantar heel for removal of the 2 posterior to anterior screws these were also debrided and curetted thoroughly irrigated and antibiotic beads were placed within the bone tunnels. Closure Type: primary Specimen(s): other Prosthetic devices, grafts, tissues, transplants, or devices: Tissue and abscess fluid sent for culture and bacterial PCR Estimated Blood Loss (mL): 30 Blood products transfused: none Tourniquet time (min): 60 Procedure in detail: Patient was seen in the preoperative area the site of surgery was marked informed consent confirmed. This was the left foot and ankle. The patient was then brought back to the operating room by the anesthesia team positioned supine on operative table. Anesthetic was administered. The left lower extremity was prepped and draped in the standard sterile fashion formal time-out procedure was performed confirming the patient's side and site of surgery administration of appropriate antibiotic after cultures. After cultures were sent patient received 1 g of vancomycin and 2 g of Ancef Attention was turned to the left foot. There is a fluctuant abscess at the sinus tarsi area sinus tarsi incision was reopened revealing the abscess. Cultures were taken. This tracked down to the sinus tarsi deep tissue was removed and sent for bacterial PCR. Sinus tarsi was debrided as well as part of a torn remnant of the peroneus brevis tendon was also excised. Once the debridement of skin, subcutaneous tissue tendon and bone at the sinus tarsi was completed with curette and rongeur and sharp blade for excisional debridement of the sinus tarsi contents the wound was irrigated with 3 L of saline using cysto tubing. Once this was completed a clean drape was placed gloves were changed. Separate incision was made dorsal medially to reach the anterior to posterior screw this was carefully dissected down to level of the talus and C-arm fluoroscopy was used to find the trajectory of the screw and a K-wire was placed into the screw then a screwdriver was used over this to remove the anterior to posterior screw. A separate incision was made on the plantar heel transversely to reach both of the posterior to anterior 7.0 paragon 28 monster screws. Careful dissection was taken down to the screw heads and again using the same technique of using the K- wire into the cannulated screws and then the screw local company intermodal truck driver over that for removal all 3 screws from the subtalar fusion removed in total. There was no broken hardware. All hardware was confirmed removed on AP and lateral fluoroscopic imaging. At this point another 3 L of saline was used to irrigate all of the 3 incisions again. And again the bone tunnels from the screws were curetted. After this was complete a mixture of 3 cc of the stimulant calcium dissolvable antibiotic beads was mixed with vancomycin this was made into small beads as well as antibiotic rods. The rods were placed into the screw tunnels and the beads into the sinus tarsi. Once this was complete deep closure was done with 2-0 PDS subcutaneous with 4-0 Monocryl and 3-0 nylon suture. Tourniquet was released prior to final closure to confirm hemostasis. Local anesthetic was injected for local anesthesia. The dressing was placed with Xeroform gauze Webril and an Yosef wrap. The drapes removed. The patient was placed into his postoperative boot awoken from anesthesia and taken to the recovery room in good condition there were no immediate complications with the procedure. Counts were correct. Complications: none Post-operative Condition: stable Disposition: PACU Plan for aftercare: Weightbear as tolerated in the boot. Keep dressing clean dry and intact. Follow up as scheduled in Orthopedic Clinic for wound check. We will tailor antibiotics based on cultures. Plan for PICC line and antibiotics. Aspirin 81 mg b.i.d. while weight-bearing in the boot. It hurts to weightbear may use a walker, cane, walking stick or knee scooter We will start on empiric vancomycin and Zosyn until cultures return
[2024-03-02] MEDS: OXYCODONE IR 5 MG TABLET PO (16:52)
[2024-03-02] MEDS: ACETAMINOPHEN 325 MG TABLET 650 MG PO (16:52)
--- NOTE | 2024-03-02 16:59 | DI.CT.S_ITS ---
PROCEDURE: CT LE LT W CON INDICATIONS: subtalar arthrodesis infection s/p hardware fusion TECHNIQUE: Noncontrast 1-1.5 mm axial sections acquired from above the tibiotalar joint to the bottom of the calcaneus, with coronal and sagittal reformats. COMPARISON: [facility], CR, XR ANKLE 3+ VIEWS LEFT, 12/10/2023, 11:00. [facility] [place], CR, XR FOOT 3 VIEWS WEIGHT BEARING LEFT, 03/01/2024, 11:47. [facility], CT, CT LE LT WO CON, 07/03/2023, 12:57. [facility], CR, XR ANKLE LT MIN 3V, 03/02/2024, 15:36. [facility], CT, CT LE RT WO CON, 07/03/2023, 12:57. FINDINGS: Image quality: Excellent. Bones: Patient is status post interval removal of previously noted subtalar fusion hardware with likely packing material within the screw tracts suggest clinical correlation. Osteoarthritic changes are noted throughout left foot more notably involving hindfoot joints. No acute fracture or dislocation. Erosive changes adjacent to subtalar joint which may represent osteomyelitis secondary to clinical history of joint infection. No other area of bony erosive changes are noted. No suspicious bony lesions. Soft tissues: Subcutaneous emphysema along anterior aspect of distal lower leg and ankle joint is seen extending to dorsal aspect of midfoot. Small amount of air is also seen within tibiotalar joint and subtalar joint as well as within screw tracts. Finding likely represent iatrogenic air introduced during the surgery. No discrete drainable peripherally enhancing abscess collection is noted. No gross full-thickness ankle tendon rupture. IMPRESSION: 1. Postsurgical changes from interval subtalar fusion hardware removal. Possible packing material within screw tracts suggest clinical correlation. 2. Soft tissue swelling and edema in hindfoot soft tissue with subcutaneous and intra-articular emphysema in midfoot and hindfoot as described above. No discrete drainable peripherally enhancing abscess collection. 3. Questionable erosive changes involving subtalar joint, osteomyelitis cannot be excluded given patient's history. Osteoarthritis throughout left foot. No acute fracture or dislocation. Dictated by: Christophe De La Vega M.D. on 03/02/2024 at 20:17 Approved by: Christophe De La Vega M.D. on 03/02/2024 at 20:22
[2024-03-02] MEDS: SODIUM CHLORIDE 0.9% 1,000 ML 100 ML IV (18:18)
[2024-03-02] MEDS: PIPERACILLIN/TAZO 4.5 GM in SODIUM CHLORIDE 0.9% 100 ML IV (18:23)
[2024-03-02] MEDS: FLECAINIDE 100 MG TABLET PO (21:01)
[2024-03-02] MEDS: SENNOSIDES 8.6 MG TABLET 17.2 MG PO (21:01)
[2024-03-02] MEDS: ASPIRIN EC 81 MG TABLET PO (21:01)
[2024-03-02] MEDS: DOCUSATE 100 MG CAPSULE PO (21:01)
[2024-03-02] MEDS: PIPERACILLIN/TAZO 3.375 GM in SODIUM CHLORIDE 0.9% 100 ML IV (22:57)
[2024-03-03] MEDS: ACETAMINOPHEN 325 MG TABLET 650 MG PO ×3 (00:48→14:32)
[2024-03-03] MEDS: OXYCODONE IR 5 MG TABLET PO ×6 (00:49→23:52)
[2024-03-03] MEDS: SODIUM CHLORIDE 0.9% 1,000 ML 100 ML IV ×2 (03:50→13:54)
[2024-03-03] MEDS: VANCOMYCIN 1,000 MG/200 ML PIGGYBACK 200 MG IV ×2 (03:50→16:27)
[2024-03-03 05:08] LABS: Blood Urea Nitrogen 19 mg/dL (9-20); Calcium 8.7 mg/dL (8.4-10.2); Carbon Dioxide 25 mmol/L (22-32); Chloride 106 mmol/L (98-107); Estimated Glomerular Filt Rate > 60 mL/min (>60); Glucose 81 mg/dL (80-110); HEMOLYSIS < 15 (0-50); Potassium 4.1 mmol/L (3.4-5.1); Sodium 137 mmol/L (137-145)
[2024-03-03] MEDS: PIPERACILLIN/TAZO 3.375 GM in SODIUM CHLORIDE 0.9% 100 ML IV ×3 (06:33→23:00)
[2024-03-03] MEDS: polyethylene glycoL 3350 17 GM POWD.PACK PO (08:58)
[2024-03-03] MEDS: ASPIRIN EC 81 MG TABLET PO ×2 (08:58→21:04)
[2024-03-03] MEDS: DOCUSATE 100 MG CAPSULE PO ×2 (08:58→21:04)
[2024-03-03] MEDS: FLECAINIDE 100 MG TABLET PO ×2 (09:07→21:04)
--- NOTE | 2024-03-03 09:16 | P.PN_ITS ---
Subjective Subjective Interval history: Willard is a pleasant 73 year old male who is POD#1 s/p removal of deep hardware of the left ankle and insertion of antibiotic beads by Dr. Ott. This morning he reports he is doing well overall, had a period of poor pain control last night but is doing better now w/ oral Oxycodone. Has not worked w/ PT yet today, plans to try to weight bear w/ PT later this morning. He lives at home w/ his who is willing and able to aid in his post-op recovery, he also has 2 daughters nearby for additional help as needed. Denies fever, chills, chest pain, SOB, nausea, vomiting. Exam Vital Signs (past 8 hours): Oxygen Delivery Method Room Air Oxygen Flow Rate 0 Narrative Exam Narrative: Patient lying comfortably in bed during our interview today. No acute distress. AOx3. Grossly normal alignment of the LLE with moderate swelling to the left ankle. DF, PF intact. Wiggles all toes. Gross sensation intact throughout bilateral lower extremities. Does report some baseline peripheral neuropathy at the bottom of his toes, not worse than prior to surgery. Calves soft and non-tender bilaterally. SCDs are on and functioning. Brisk capillary refill. Post-surgical dressing intact over the left ankle with mild lateral ankle bloody drainage soaking into the webrill. Objective Labs 03/02/24 13:00 03/03/24 04:33 Labs: Laboratory Results - last 24 hr 03/02/24 03/03/24 13:00 04:33 WBC 4.4 L RBC 4.70 Hgb 13.9 Hct 39.7 L MCV 84.4 MCH 29.5 MCHC 34.9 RDW 14.7 Plt Count 245 Neut % (Auto) 70.5 Lymph % (Auto) 13.9 L Ritchie % (Auto) 12.4 Eos % (Auto) 2.5 Baso % (Auto) 0.7 Neut # (Auto) 3100 Lymph # (Auto) 600 L Ritchie # (Auto) 500 Eos # (Auto) 100 Baso # (Auto) 0 ESR 20 H Sodium 138 137 Potassium 4.0 4.1 Chloride 103 106 Carbon Dioxide 26 25 BUN 22 H 19 Creatinine 0.86 1.00 Estimated GFR > 60 > 60 BUN/Creatinine Ratio 25.6 H 19.0 Glucose 86 81 Calcium 9.4 8.7 C-Reactive Protein 3.4 H [facility] Medical History (Updated 03/02/24 @ 12:30 by Adia Salinas, RN) History of depression History of arthritis History of headache Aortic dilatation Afib Surgical History (Updated 03/02/24 @ 12:30 by Adia Salinas, RN) History of knee replacement History of cataract surgery Social History household members: spouse Smoking Status: Never smoker alcohol intake: current Assessment & Plan Post-op Postoperative Procedures: Procedures Operation Date: 03/02/24 13:15 Actual Procedure Side Surgeon p Hardware infection left foot and ankle Left Autumn Ott MD s Debridement of bone Left Autumn Ott MD Postoperative plan narrative: 1) Plan to discharge to home after final wound cultures are back w/ IV abx. 2) Continue multimodal pain management with ice to the ankle as needed for additional pain control. 3) ASA 81mg b.i.d. for DVT prophylaxis while using walking boot. 4) Work w/ physical therapy, patient may WBAT in walking boot. May use walker, cane, walking stick or knee scooter as needed if painful WB in boot. 5) Patient will be getting PICC today, will tailor abx pending final wound cultures. Empiric vancomycin and Zosyn until cultures return. 6) Keep dressing intact, clean, dry until 2 week postop appointment. No soaking the incision site in pools or tubs. No topical ointments or creams to the incision site. Will likely need to change post-op surgical dressing tomorrow/prior to d/c d/t bloody drainage. 7) Follow up at [facility] orthopedics in 2 weeks for a postop appointment and wound check. All patient's questions were answered, he demonstrates understanding and is in agreement with the plan. Call our office if any questions or concerns arise. Quality VTE Deep Vein Thrombosis/Pulmonary Embolism Present on Admission: No
--- NOTE | 2024-03-03 09:36 | PT.IIE ---
Current Diagnoses Primary osteoarthritis, left ankle and foot (03/02/24) Valgus deformity, not elsewhere classified, left ankle (03/02/24) Infection and inflammatory reaction due to other internal orthopedic prosthetic devices, implants and grafts, initial encounter (03/02/24) Surgery Performed Operation Date: 03/02/24 13:15 Actual Procedures p Hardware infection left foot and ankle(Left) - Autumn Ott MD s Debridement of bone(Left) - Autumn Ott MD Surgical History (Last Updated 03/02/24 @ 12:30 by Adia Salinas, RN) History of cataract surgery History of knee replacement Medical History (Last Updated 03/02/24 @ 12:30 by Adia Salinas, RN) Afib Aortic dilatation History of arthritis History of depression History of headache Physical Therapy Inpatient Evaluation/Re-Eval M1 PT/OT-IP Prior Functional Status Start: 03/03/24 07:37 Freq: NEEDED Status: Active Protocol: Document 03/03/24 09:07 MB (Rec: 03/03/24 09:35 MB [id number]) Medical Review Prior Functional Status Medical History Reviewed Yes Diet/Fluid Consistency Regular Communication WNLs Mobility and Gait I Activities of Daily Living and IADL's I Prior Functional Level (Other details) Lives with in [place] and drove at baseline Social History Household Members spouse Living Arrangements House Number of Floors (Floors) One Floor Number of Stairs To Enter/Railing? 2 platform steps to enter home Home Environment Standard Height Toilet,Walk in Shower Home Equipment Front Wheel Walker,Shower Seat without Backrest,Grab Bars Near Toilet,Grab Bars In Shower Employment Status Retired M2 PT-IP Current Condition Start: 03/03/24 07:37 Freq: NEEDED Status: Active Protocol: Document 03/03/24 09:07 MB (Rec: 03/03/24 09:35 MB [id number]) Physical Therapy Current Condition Current Condition Evaluation Date 03/03/24 Treatment Diagnosis Left ankle infection and hardware removal, PA reports spacer M3 PT-IP Subjective Start: 03/03/24 07:37 Freq: NEEDED Status: Active Protocol: Document 03/03/24 09:07 MB (Rec: 03/03/24 09:35 MB [id number]) Subjective Physical Therapy Visit Type Type Initial Evaluation Visit Start Time 09:07 Visit Stop Time 09:25 Number of EDUCATIONAL PARAPROFESSIONAL Visits 0 Physical Therapy Visit Comments Patient Comments Pt is agreeable to PT Therapy Pain Assessment Pain When Pain Assessed At Rest Pain Present Pain Present Pain Reported Location Left Foot Intensity 5 Scale Used Fly (Faces) M4 PT-IP Mobility and Gait Start: 03/03/24 07:37 Freq: NEEDED Status: Active Protocol: Document 03/03/24 09:07 MB (Rec: 03/03/24 09:35 MB [id number]) PT-Bed Mobility Assessment Rolling Type of Rolling Roll to Right,Roll to Left Level of Assist Independent Supine to Sit Supine to Sit Independent,Head of Bed Elevated,Bedrails Sit to Supine Sit to Supine Independent,Head of Bed Elevated,Bedrails Scooting Scooting to Edge of Bed Independent Scooting Up and Down in Bed Independent PT-Transfer Assessment Sit to and From Stand Sit to and from Stand Contact Guard Assistance,1 Person Assistance,Use of Upper Extremities Equipment Transfer Assistive Device Gait Belt,Front Wheeled Walker Orthotic/Prosthetic Devices or Brace: No Transfers Transfer Destination Bed Transfer Technique Ambulation Transfer Ability Level of Assist Contact Guard Assistance,1 Person Assistance,Use of Upper Extremities Comments Mobility Comments PT manages IV line, cues for hand placement Gait Assessment Gait Gait Assistance Required: Contact Guard Assist,1 Person Assist Distance (Feet) 50 Able to Maintain Weight Bearing Status Yes During Gait Assistive Devices Assistive Device Gait Belt,Front Wheeled Walker Orthotic/Prosthetic Devices or Brace: No Gait Deviations General Gait Pattern Antalgic,Decreased Stride Length,Decreased Feet Clearance,Flexed Trunk,Step-to Gait,Wide Based Gait Factors Limiting Gait Function Factors Limiting Gait Function Decreased Activity Tolerance, Decreased Strength,Difficulty Following Directions, Incoordination,Limited Range of Motion,Pain,Poor Balance Comments Gait Comments Heavy step-to stepping with left LE functionally longer than the right d/t boot and this shifts pelvis, spine and balance, heavy UE support on RW and PT manages IV line PT-Balance Assessment Sitting Balance and Reactions Static Sitting Balance Ability Good Dynamic Sitting Balance Ability Good Standing Balance and Reactions Static Standing Balance Ability Good Dynamic Standing Balance Ability Fair Device Used RW M5 PT-IP Objective Assessments Start: 03/03/24 07:37 Freq: NEEDED Status: Active Protocol: Document 03/03/24 09:07 MB (Rec: 03/03/24 09:35 MB [id number]) Orientation Orientation/Cognition Level of Alertness Alert Orientation Name,Age,Birthday,Month,Date, Year,Day of Week,Place, Situation Language Function Ability No Deficits Noted Safety Awareness Understands Safety Issues Memory Description No Deficits Noted Gross Range of Motion Upper Extremity ROM Assessment Within Functional Limits Lower Extremity ROM Assessment Left Impaired Impairments L ankle in boot Strength Upper Extremity Strength Assessment Within Functional Limits Lower Extremity Strength Assessment Left Impaired Comments Strength Comments Left ankle in boot Coordination Assessment Gross Coordination Gross Coordination Impaired M6 PT-IP Treatment Start: 03/03/24 07:37 Freq: NEEDED Status: Active Protocol: Document 03/03/24 09:07 MB (Rec: 03/03/24 09:35 MB [id number]) Physical Therapy Treatment Education Education Provided Precautions,Weight Bearing Status,Safety M7 PT-IP Assessment and Plan Start: 03/03/24 07:37 Freq: NEEDED Status: Active Protocol: Document 03/03/24 09:07 MB (Rec: 03/03/24 09:35 MB [id number]) PT Summary Assessment and Plan Potential Rehabilitation Potential Good Status of Condition at Evaluation Evolving Summary Impairments Pain,ROM,Strength,Balance, Coordination,Sensation,Bed Mobility,Transfers,Gait, Activity Tolerance Progress Towards Goals Progressing Toward Goals Assessment Summary Pt is a 73 y/o male presenting with left foot and ankle pain POD1 hardware removal and infection. PA states that he has a spacer. Pt is WBAT in boot and he has performed this gait before. PT manages IV today and cues pt to limit gait distance on LLE to needed distances only. He has two platform type steps to enter. Pt prefers bed to elevate leg and PT agrees to reposition him in bed after treatment. Recommend up to BR with nsg and up to chair or EOB for meals. Goals Bed Mobility Goal Independent Transfer Goal Independent,Front Wheeled Walker Gait Goal Independent,Front Wheel Walker Gait Distance 75 Other Goals Limit gait distance given left foot issues, no more than needed distances in hospital and home Pt will ascend and descend platform step with RW and no more than CGA to allow safe home entrance. Days to Meet Goals 5 Frequency of Treatment Frequency Of Treatment Once a Day Treatment Plan Physical Therapy Treatment Plan Bed Mobility Training,Transfer Training,Gait Training, Therapeutic Exercise,Balance Retraining,Post Op Education, Discharge Planning,Hot or Cold Pack,Neuromuscular Re-ed, Coordination Retraining,Manual Therapy Weight Bearing Status Weight Bearing Status Weight Bear as Tolerated Allowed Weight Bearing Amount (enter % WBAT LLE in boot or #) (%) Recommendations To Nursing Amount of Assist Needed 1 Person Assist Discharge Recommendations PT Discharge Recommendations Home with Assistance Transportation Needs at Discharge Private Vehicle
--- NOTE | 2024-03-03 10:01 | DI.RAD.S_ITS ---
PROCEDURE: XR CHEST FOR PICC 1V INDICATIONS: line placement COMPARISON: None. FINDINGS: PICC was placed by the intravenous therapy team from the left side. Fluoroscopic spot film demonstrates the tip of PICC projecting to the area of distal SVC. IMPRESSION: Tip of PICC projects to the area of distal SVC. Dictated by: Lynn Wheeler MD, PhD on 03/03/2024 at 11:14 Approved by: Lynn Wheeler MD, PhD on 03/03/2024 at 11:14
[2024-03-03 10:20] VITALS: BP 129/84; PULSE 95; RESP 16; TEMP 37.1; O2SAT 95
--- NOTE | 2024-03-03 11:05 | OT.IP.EVAL ---
Current Diagnoses Primary osteoarthritis, left ankle and foot (03/02/24) Valgus deformity, not elsewhere classified, left ankle (03/02/24) Infection and inflammatory reaction due to other internal orthopedic prosthetic devices, implants and grafts, initial encounter (03/02/24) Surgery Performed Operation Date: 03/02/24 13:15 Actual Procedures p Hardware infection left foot and ankle(Left) - Autumn Ott MD s Debridement of bone(Left) - Autumn Ott MD Past Medical History (Last Updated 03/02/24 @ 12:30 by Adia Salinas, RN) Afib Aortic dilatation History of arthritis History of depression History of headache Surgical History (Last Updated 03/02/24 @ 12:30 by Adia Salinas, RN) History of cataract surgery History of knee replacement Occupational Therapy Inpatient Evaluation/Re-Eval M1 PT/OT-IP Prior Functional Status Start: 03/03/24 07:37 Freq: NEEDED Status: Active Protocol: Document 03/03/24 11:08 [facility] (Rec: 03/03/24 11:37 [facility] [id number]) Medical Review Prior Functional Status Medical History Reviewed Yes Diet/Fluid Consistency Regular Communication WNLs Mobility and Gait I Activities of Daily Living and IADL's I Prior Functional Level (Other details) Lives with in [place] and drove at baseline Social History Household Members spouse Living Arrangements House Number of Floors (Floors) One Floor Number of Stairs To Enter/Railing? 2 platform steps to enter home Home Environment Standard Height Toilet,Walk in Shower Home Equipment Front Wheel Walker,Shower Seat without Backrest,Grab Bars Near Toilet,Grab Bars In Shower Employment Status Retired M2 OT-IP Current Condition Start: 03/03/24 11:07 Freq: Status: Active Protocol: Document 03/03/24 11:08 [facility] (Rec: 03/03/24 11:37 [facility] [id number]) Occupational Therapy Current Condition Current Condition Evaluation Date 03/03/24 Treatment Diagnosis S/P L ankle hardware removal, I and D Diagnosis Onset Date 03/02/24 Weight Bearing Status Weight Bearing Status Weight Bear as Tolerated Allowed Weight Bearing Amount (enter % In boot if having pain use of or #) (%) walker,cane, walking stick or knee scooter. M3 OT- IP Subjective and Pain Start: 03/03/24 11:07 Freq: Status: Active Protocol: Document 03/03/24 11:08 [facility] (Rec: 03/03/24 11:37 [facility] [id number]) OT- Subjective Occupational Therapy Visit Type Type Initial Evaluation Visit Start Time 10:24 Visit Stop Time 11:05 Notes Pt just having picc line placed after PT eval and per pt states has a 20 lb lifting restriction for his LUE now. Nursing to clarify for how long. Occupational Therapy Visit Comments Patient Comments Pt agreed to get up and wanting to use the bathroom. OT Pain Assessment Pain When Pain Assessed At Rest Pain Present Pain Present Pain Reported Location Left Foot Intensity 4 Scale Used Numeric (0 - 10) M4 OT- IP ADL's Start: 03/03/24 11:07 Freq: Status: Active Protocol: Document 03/03/24 11:08 [facility] (Rec: 03/03/24 11:37 [facility] [id number]) OT [id number] General Evaluation Self-Feeding Ability Independent OT ADL-Grooming General Evaluation Grooming Ability Independent Comments OT Grooming Comments Able to do while seated. OT ADL-Oral Care General Eval Oral Care Ability Independent OT ADL-Dressing General Eval Lower Body Dressing Ability Moderate Assistance Comments OT Dressing Comments MODA to assist with boot management needs. Pt asked if there was any devices to assist for sock management. Due to pt's structure of his ankle, best at this time for his to assist him as any device may put more pressure on his ankles. Pt will need assist for socks. OT ADL-Toileting General Evaluation Toileting Ability Standby Assistance Comments OT Toileting Comments Pt turns the FWW around to use it to help lower himself down at this time. Suggested pt get a BSC so not having to put so much pressure on his LUE when coming to stand. OT ADL-Bathing Comments OT Bathing Comments Pt will need assist. M5 OT- IP IADL's Start: 03/03/24 11:07 Freq: Status: Active Protocol: Document 03/03/24 11:08 [facility] (Rec: 03/03/24 11:37 [facility] [id number]) OT-Instrumental Activities of Daily Living Home Safety Awareness Awareness of Need for Assistance at Home Good Awareness Ability to Problem Solve Emergency Able to Problem Solve Situations Meal Preparation Meal Preparation Caregiver Provides Assist Interventional Technologist Interventional Technologist Caregiver Provides Assist M6 OT- IP Functional Cognition Start: 03/03/24 11:07 Freq: Status: Active Protocol: Document 03/03/24 11:08 [facility] (Rec: 03/03/24 11:37 [facility] [id number]) Cognitive Factors Limiting Selfcare Function Cognitive Ability Level of Alertness Alert Patient Orientation Name,Age,Birthday,Month,Date, Year,Day of Week,Place, Situation Attention Span Ability Capable of Focused Attention, Capable of Sustained Attention Ability to Follow Commands Able to Follow One Step Commands Safety Awareness Underestimates Need for Assistance Cognitive Comments Cognitive Assessment Comments Pt is slightly impulsive and needing cues to slow down and not use his LUE to push to stand as just having PICC line placed in his LUE. OT- Vision and Hearing OT- Hearing Assessment OT- Hearing Assessment Hearing Impaired,Use of Hearing Aids OT- Vision Assessment Visual Acuity WFL Visual Attentiveness WFL Occular Pursuits WFL Vision Assessment Comments Pt states does not use his hearing aids. M7 OT- IP Mobility and Balance Start: 03/03/24 11:07 Freq: Status: Active Protocol: Document 03/03/24 11:08 [facility] (Rec: 03/03/24 11:37 [facility] [id number]) OT- Bed Mobility Assessment Supine to Sit Supine to Sit Assist Standby Assistance OT-Transfer Assessment Sit to and From Stand Sit to and from Stand Standby Assistance Transfers Transfer Ability Standby Assistance Technique Transfer Destination Chair,Toilet Transfer Technique Stand Step Pivot Devices Transfer Assistive Devices Gait Belt,Front Wheeled Walker Comments Mobility Comments Pt able to get up by using his RUE on the armrest to come to stand. At this time until able to clarify how long pt need to limit LUE to 20lbs. Pt may have to use a cane instead to do the steps at his house. OT- Balance Assessment Sitting Balance and Reactions Static Sitting Balance Ability Normal Dynamic Sitting Balance Ability Good Standing Balance and Reactions Static Standing Balance Ability Good Dynamic Standing Balance Ability Fair M8 OT- IP Objective Assessments Start: 03/03/24 11:07 Freq: Status: Active Protocol: Document 03/03/24 11:08 [facility] (Rec: 03/03/24 11:37 [facility] [id number]) OT Gross Range of Motion Upper Extremity Range of Motion Assessment Within Functional Limits OT Strength Comments Strength Comments RUE WFL, LUE NT due to 20lb restrictions as just having PICC line placed earlier. M9 OT- IP Assessment and Plan Start: 03/03/24 11:07 Freq: Status: Active Protocol: Document 03/03/24 11:08 [facility] (Rec: 03/03/24 11:37 [facility] [id number]) OT Summary Assessment and Plan Potential Rehabilitation Potential Good Analytic Complexity at Evaluation Low Summary OT Impairments Pain,Balance,Functional Mobility,Dressing,Toileting, Bathing,Toilet Transfers, Shower Transfers Progress Towards Goals Progressing Toward Goals Assessment Summary Pt LOW complexity and main barriers are steps, pain, and looking to go home when medically stable. Pt just having picc line place and states on 20lb restrictions for his LUE, nursing to clarify for how long. Pt would benefit from a BSC to increased ease to stand from the toilet at this time. Goals Grooming Goal Independent Dressing Goal Minimal Assistance Toileting Goal Independent Bathing Goal Minimal Assistance Toilet Transfer Goal Independent Shower Transfer Goal Independent Days to Meet Goals 2 Frequency of Treatment Other frequency 5x/week Treatment Plan OT Treatment Plan ADL Training,Functional Mobility,Patient/Family Education,Discharge Planning Discharge Recommendations OT Discharge Recommendations Home with Assistance
--- NOTE | 2024-03-03 12:27 | OT.IPNOTE ---
Per pt's nurse able to clarify for therapy that pt is not to lift more than 20lbs but able to push without any restrictions for his LUE.
--- NOTE | 2024-03-03 13:28 | CM.DANOTE ---
Patient is a 73 yo male who was admitted [facility] and attempting to switch to INPT Status on 03/02/24 for Infected Hardware removal post surg. Pt has [facility] for insurance and his PCP is Jovany Leal. EMR was reviewed. Per Ortho, pt with ankle surgery and now abscess and infection and taken to OR for hardware removal, I&D, drainage of abscess and cultures pending. PICC placed today for plan of likely IV-Abx at d/c. PT/OT, pt ambulated well with his walking boot as he is WBAT with boot and has DME at home and recommending home with spouse assist. SW met bedside with pt and explained role and he confirms he lives in [place] with his spouse and is independent with ADLs at baseline and drives and has DME at home from his recent ankle surgery. Pt states he also has two local supportive Dtrs who can assist as needed. Pt denies any hx of HH or SNF. SW discussed likely need for IV-Abx at d/c pending his cultures and discussed if once a day one option could be the Infusion Clinic at [facility] or option of home infusion. Pt states his preference is home infusion as he does not feel he could reasonably do the outpt infusion clinic. Pt agreeable with referral to [facility] to run his insurance for any out of pocket expenses. SW called [facility] and made new referral and they will review knowing pt's current two antibiotics might change pending cultures. PICC insertion note and med list sent with referral. Plan: SW to follow closely for culture results to narrow IV-Abx needed at d/c and [facility] review to confirm if any out of pocket expense. LYN Phelan Discharge Planning/Care Management CM Discharge Assessment Start: 03/03/24 13:13 Freq: Status: Active Protocol: Document 03/03/24 13:13 BF (Rec: 03/03/24 13:28 BF [id number]) Discharge Planning Assessment Assigned Press Washer LYN Greer DPOA/Assigned Designee Name spouse Kirstie Contact Information [phone] Advance Directives? Yes Advance Directives on File No History Provided By Patient,Medical Record Has Patient been admitted in last 30 No days? Prior Living Arrangements House Household Members spouse Type of transporation used prior to Drives own vehicle admit Independent with ADL's Yes Is patient alert and oriented? Yes Caregiver for Another No Community Services used prior to Physical Therapy admission: DME Already Rented / Owned Other Comment Walking boot Patient/Family Preference OP PT Therapy Barriers to Discharge No Discharge Plan Home Community Services IV Therapy Transportation Arrangement spouse to transport at d/c Referrals Initiated Other Additional Comment [facility] referral made for IV-Abx Whiteboard Updated in Patient Room with Yes name and ext. # of Press Washer Review Status In Process Please Provide Date Initial DC 03/03/24 Assessment Was Performed Next Review Type Continued Stay Review
[2024-03-03] MEDS: SERTRALINE 50 MG TABLET PO (16:27)
[2024-03-03] MEDS: dilTIAZem CD 120 MG CAP PO (16:27)
[2024-03-03 20:00] VITALS: BP 115/77; PULSE 90; RESP 20; O2SAT 95
[2024-03-03] MEDS: SENNOSIDES 8.6 MG TABLET 17.2 MG PO (21:04)
[2024-03-04] MEDS: SODIUM CHLORIDE 0.9% 1,000 ML 100 ML IV (01:39)
[2024-03-04] MEDS: ACETAMINOPHEN 325 MG TABLET 650 MG PO (04:11)
[2024-03-04] MEDS: VANCOMYCIN 1,000 MG/200 ML PIGGYBACK 200 MG IV (04:12)
[2024-03-04 04:26] LABS: Vancomycin Trough 8.8 ug/mL (10-20)
[2024-03-04] MEDS: PIPERACILLIN/TAZO 3.375 GM in SODIUM CHLORIDE 0.9% 100 ML IV (06:18)
[2024-03-04 06:39] LABS: Vancomycin Peak 20.7 ug/mL (20-40)
[2024-03-04 08:00] VITALS: BP 121/80; PULSE 81; RESP 18; TEMP 37.2; O2SAT 94
--- NOTE | 2024-03-04 08:09 | P.DS_ITS ---
History of Present Illness History of Present Illness Date Patient Seen: 03/04/24 Time Patient Seen: 08:00 Chief complaint: OPB Narrative: Patient was a 73-year-old male status post subtalar fusion October 07, 2023. During recovery he had a small area that opened up near his minimally invasive calcaneal osteotomy this was cultured at an outside hospital which was MSSA. He was treated initially on Keflex then also had Bactrim and doxy this cleared up and he was doing reasonably well. He presented on 03/01 with a new acute increased swelling and pain over several days. He denied any fevers or chills. He was found to have a abscess at the level of the sinus tarsi without any wounds or erythema but there was fluctuance and purulence on aspiration. Radiographs demonstrated lucency around the screws concerning for loosening.. He was indicated for surgery for hardware removal and irrigation and debridement. Discharge Providers Provider Date of admission: 03/02/24 16:59 Discharge Date: 03/04/24 Primary care physician: Jovany Leal MD Consults: 03/02/24 12:17 Consult to Anesthesiology Routine Comment: Consulting Provider: Anesthesiologist Reason for consultation: Post operative pain managment Has provider been notified: No 03/02/24 16:59 Consult to Discharge Planning Routine Comment: Consult to Occupational Therapy Evaluate & Treat Comment: Physician Instructions: Evaluate and treat Consult to Physical Therapy Evaluate & Treat Comment: Physician Instructions: Evaluate and Treat Discharge provider: Nick Brewer PA-C Summary Hospital Course Discharge Diagnosis: Arthritis left subtalar joint, infected hardware left lower extremity, osteomyelitis Hospital Course: Operative Notes Findings: Abscess lateral sinus tarsi incision tracking deep to the sinus tarsi. No wounds. No erythema. Calf soft. Three incisions were made over the left foot the 1st was reopening the sinus tarsi incision to perform the debridement of skin peroneal tendon subcutaneous tissue and bone at the sinus tarsi. Separate medial dorsal incision was made to remove the anterior to posterior screw and this bone tunnel was curetted and then later antibiotic beads were placed within the bone tunnel. A 3rd incision was made at the plantar heel for removal of the 2 posterior to anterior screws these were also debrided and curetted thoroughly irrigated and antibiotic beads were placed within the bone tunnels. Closure Type: primary Specimen(s): other Prosthetic devices, grafts, tissues, transplants, or devices: Tissue and abscess fluid sent for culture and bacterial PCR Estimated Blood Loss (mL): 30 Blood products transfused: none Tourniquet time (min): 60 Status at Discharge Cognitive/behavioral status at discharge: oriented Functional status at discharge: independent ambulation Overall status at discharge: patient is back to baseline Time Spent with Patient Time spent: Less than 30 minutes Exam Vital Signs (past 8 hours): Oxygen Delivery Method Room Air Oxygen Flow Rate 0 Narrative Exam Narrative: patient is sitting comfortably in bed with his cam walker boot off. States he only required pain medication the 1st 24 hours after surgery. Pain is controlled now with Tylenol. Denies any new numbness or tingling into his foot or toes. Denies any drainage from the bandage. Dressing appears to be clean dry and intact. Able to manipulate all 5 digits. Sensation intact over all 5 fat pads. No pain to compression along the posterior calf bilaterally. Objective Labs 03/02/24 13:00 03/03/24 04:33 Labs: Laboratory Results - last 24 hr 03/04/24 03/04/24 04:00 06:10 Vancomycin Peak 20.7 Vancomycin Trough 8.8 L [facility] Medical History (Updated 03/02/24 @ 12:30 by Adia Salinas, RN) History of depression History of arthritis History of headache Aortic dilatation Afib Surgical History (Updated 03/02/24 @ 12:30 by Adia Salinas, RN) History of knee replacement History of cataract surgery Social History household members: spouse Smoking Status: Never smoker alcohol intake: current Discharge Assessment & Plan Assessment and Plan Assessment: Status post incision and drainage and removal of painful hardware. Plan of Treatment: PICC line established Cultures no growth so far today. Previous wound culture from December from [facility] demonstrated MSSA Discharge home on Rocephin 2 g Q 24 hours x6 weeks. CM working with [facility] or [facility]. Weekly CBC with diff Weekly CMP Weekly ESR Weekly CRP Outpatient Infectious Disease consult with [facility] placed with referral sent from [facility]. Follow up in 3 weeks in [facility] for wound check We will continue to follow cultures and the pending bacterial PCR Ambulate with CAM walker boot. May remove boot when in bed. Notify [facility] clinic with any questions or concerns. Discharge Plan Discharge Plan Patient Disposition: Home Discharge orders & Medications Prescriptions: New oxycodone 5 mg tablet 5 mg PO Q4H PRN (Reason: pain) Qty: 30 0RF Continued acetaminophen 500 mg Tablet 1,000 mg PO BID meloxicam 15 mg Tablet 15 mg PO DAILY flecainide 100 mg Tablet 100 mg PO Q12H diltiazem HCl 120 mg Capsule,Extended Release 24hr 120 mg PO DAILY sertraline [Zoloft] 50 mg Tablet 50 mg PO DAILY turmeric root extract 500 mg Tablet 1,000 mg PO DAILY Follow up/Referrals: Jovany Leal MD [Primary Care Provider] - Diet/Activity/Treatments Diet: Diet as Tolerated Activity: Weightbear as tolerated in the boot. If it hurts to weightbear may use a walker, cane, walking stick or knee scooter Skin/Wound/Dressing Care Report to your healthcare provider any signs of infection, such as:: chills, fever, night sweats, unusual drainage and unusual redness Dressing: Keep dressing clean and dry. Visit Report/Discharge Packet Instructions: DI for Prescription Opioid Use, DI for Joint Replacement Hardware Removal, DI for Incision and Drainage of a Joint, [facility]: Wound Care Stand Alone Forms: Patient Portal/API, Stroke Signs & Symptoms, Surgery Discharge Discharge Data Primary Care Provider: Jovany Leal Quality VTE Deep Vein Thrombosis/Pulmonary Embolism Present on Admission: No
[2024-03-04] MEDS: ASPIRIN EC 81 MG TABLET PO (08:34)
[2024-03-04] MEDS: cefTRIAXone 2,000 MG in SODIUM CHLORIDE 0.9% 100 ML 200 MG IV (08:34)
[2024-03-04] MEDS: DOCUSATE 100 MG CAPSULE PO (08:34)
[2024-03-04] MEDS: polyethylene glycoL 3350 17 GM POWD.PACK PO (08:34)
[2024-03-04] MEDS: FLECAINIDE 100 MG TABLET PO (08:37)
--- NOTE | 2024-03-04 08:45 | PT.IPTN ---
Current Diagnoses Primary osteoarthritis, left ankle and foot (03/02/24) Valgus deformity, not elsewhere classified, left ankle (03/02/24) Infection and inflammatory reaction due to other internal orthopedic prosthetic devices, implants and grafts, initial encounter (03/02/24) Surgery Performed Operation Date: 03/02/24 13:15 Actual Procedures p Hardware infection left foot and ankle(Left) - Autumn Ott MD s Debridement of bone(Left) - Autumn Ott MD Physical Therapy Treatment Note M2 PT-IP Current Condition Start: 03/03/24 07:37 Freq: NEEDED Status: Active Protocol: Document 03/03/24 09:07 MB (Rec: 03/03/24 09:35 MB [id number]) Physical Therapy Current Condition Current Condition Evaluation Date 03/03/24 Treatment Diagnosis Left ankle infection and hardware removal, PA reports spacer M3 PT-IP Subjective Start: 03/03/24 07:37 Freq: NEEDED Status: Active Protocol: Document 03/04/24 10:18 TS (Rec: 03/04/24 10:24 TS [id number]) Subjective Physical Therapy Visit Type Type Treatment Note Visit Start Time 08:45 Visit Stop Time 09:10 Number of TALENT BUYER Visits 1 Physical Therapy Visit Comments Patient Comments Pt found resting in chair, is agreeable to PT. Therapy Pain Assessment Pain When Pain Assessed At Rest Pain Present Pain Present Pain Reported M4 PT-IP Mobility and Gait Start: 03/03/24 07:37 Freq: NEEDED Status: Active Protocol: Document 03/04/24 10:18 TS (Rec: 03/04/24 10:24 TS [id number]) PT-Transfer Assessment Sit to and From Stand Sit to and from Stand Standby Assistance Equipment Transfer Assistive Device Gait Belt,Front Wheeled Walker Orthotic/Prosthetic Devices or Brace: No Comments Mobility Comments STS from chair with FWW SBA. He amblated ~200'SBA with antalgic gait. He performed steps x3 with use of trek pole and ONLINE TRADER, pt required cues for sequencing. He ambulated back to the room. Pt was left in the chair, all needs met. Gait Assessment Gait Gait Assistance Required: Standby Assistance Distance (Feet) 200 Able to Maintain Weight Bearing Status Yes During Gait Assistive Devices Assistive Device Gait Belt,Front Wheeled Walker Orthotic/Prosthetic Devices or Brace: No Gait Deviations General Gait Pattern Antalgic,Decreased Stride Length,Decreased Feet Clearance,Flexed Trunk,Step-to Gait,Wide Based Gait Factors Limiting Gait Function Factors Limiting Gait Function Decreased Activity Tolerance, Decreased Strength,Difficulty Following Directions, Incoordination,Limited Range of Motion,Pain,Poor Balance Comments Gait Comments see mobility comments Stair Climbing Assessment Evaluation Level of Assist On Stairs Minimal Assistance,1 Person Assistance Devices Stair Climbing Assistive Devices Straight Cane Technique/Endurance Stair Climbing Direction Ascend and Descend Stair Climbing Technique Step to Step Number of Steps Climbed 3 PT-Balance Assessment Sitting Balance and Reactions Static Sitting Balance Ability Normal Dynamic Sitting Balance Ability Good Standing Balance and Reactions Static Standing Balance Ability Good Dynamic Standing Balance Ability Fair Device Used FWW M5 PT-IP Objective Assessments Start: 03/03/24 07:37 Freq: NEEDED Status: Active Protocol: Document 03/03/24 09:07 MB (Rec: 03/03/24 09:35 MB [id number]) Orientation Orientation/Cognition Level of Alertness Alert Orientation Name,Age,Birthday,Month,Date, Year,Day of Week,Place, Situation Language Function Ability No Deficits Noted Safety Awareness Understands Safety Issues Memory Description No Deficits Noted Gross Range of Motion Upper Extremity ROM Assessment Within Functional Limits Lower Extremity ROM Assessment Left Impaired Impairments L ankle in boot Strength Upper Extremity Strength Assessment Within Functional Limits Lower Extremity Strength Assessment Left Impaired Comments Strength Comments Left ankle in boot Coordination Assessment Gross Coordination Gross Coordination Impaired M6 PT-IP Treatment Start: 03/03/24 07:37 Freq: NEEDED Status: Active Protocol: Document 03/04/24 10:18 TS (Rec: 03/04/24 10:24 TS [id number]) Physical Therapy Treatment Education Education Provided Precautions,Weight Bearing Status,Safety M7 PT-IP Assessment and Plan Start: 03/03/24 07:37 Freq: NEEDED Status: Active Protocol: Document 03/04/24 10:18 TS (Rec: 03/04/24 10:24 TS [id number]) PT Summary Assessment and Plan Potential Rehabilitation Potential Good Summary Impairments Pain,ROM,Strength,Balance, Coordination,Sensation,Bed Mobility,Transfers,Gait, Activity Tolerance Progress Towards Goals Progressing Toward Goals Assessment Summary Willard continues to make progress with his mobility. He is SBA for STS and gait with FWW. He progressed to stairs x3 with use of trek pole and ONLINE TRADER. PT is recommending home with assist. Goals Bed Mobility Goal Independent Transfer Goal Independent,Front Wheeled Walker Gait Goal Independent,Front Wheel Walker Gait Distance 75 Other Goals Limit gait distance given left foot issues, no more than needed distances in hospital and home Pt will ascend and descend platform step with RW and no more than CGA to allow safe home entrance. Days to Meet Goals 5 Frequency of Treatment Frequency Of Treatment Once a Day Treatment Plan Physical Therapy Treatment Plan Bed Mobility Training,Transfer Training,Gait Training, Therapeutic Exercise,Balance Retraining,Post Op Education, Discharge Planning,Hot or Cold Pack,Neuromuscular Re-ed, Coordination Retraining,Manual Therapy Weight Bearing Status Weight Bearing Status Weight Bear as Tolerated Allowed Weight Bearing Amount (enter % WBAT LLE in boot or #) (%) Recommendations To Nursing Amount of Assist Needed 1 Person Assist Discharge Recommendations PT Discharge Recommendations Home with Assistance Transportation Needs at Discharge Private Vehicle
--- NOTE | 2024-03-04 10:06 | OT.IPNOTE ---
Pt to go home and finalized all OT suggestions, no charge.
[2024-03-04 12:00] VITALS: BP 125/82; RESP 18; TEMP 36.9; O2SAT 96
--- NOTE | 2024-03-04 14:53 | CM.DPNOTE ---
Addendum entered by LYN Hernandez 03/04/24 15:04: Correction: referral placed to [facility] per Dr Ott's addendum on 03/03 prog note. Original Note: DC Note According to Stanley at [employer], patient is covered 100% for home infusion. Patient has been updated. According to Ortho PA Osman, patient will discharge today with need of 2g Rocephin Q24 for 6 weeks (plan per Dr Ott). Weekly lab draw needed also. According to Dr Ott's note 03/04 at 0641, [facility] will send a referral request today to [facility] to follow ongoing orders. Explained to PA that Dr Ott will need to follow initial orders until ID has accepted the referral and agreeing to follow ongoing abx orders. Updated Stanley at [employer] with above and faxed the prog note with abx order to [facility] [phone]. RN from [facility] will meet patient at bedside this afternoon before his return home. Patient aware and agreeable to plan. Plan: Discharge home w/spouse, [facility] for home abx 2 g Rocephin Q24 x [address] Ott, referral placed to [facility] per Dr Ott's addendum on 03/04 note. DIANNA
--- NOTE | 2024-03-04 17:13 | PC.NURSE ---
Pt feels ready to d/c to home. SS has everything arranged. [facility] here and gave pt their teaching. Picc line dressing was changed. Reviewed discharge packet. RX has been esent to [email or web address]. Pt and feel comfortable with going home. Pt d/c to home via auto w/spouse.
== END 2024-03-04 16:30 | disposition home or self-care (01) ==
LOC: OR 03-03 11:58 → AC 03-03 12:00
PROVIDERS: Admitting Provider Orthopaedic Surgery Foot and Ankle Surgery; Family Provider Family Medicine; PCP Family Medicine; Referring Provider Orthopaedic Surgery Foot and Ankle Surgery; Visit Provider Orthopaedic Surgery Foot and Ankle Surgery
PROC: (CPT 20702; principal; 2024-03-02 13:15)
PROC: (CPT 20702; 2024-03-02 13:15)
DX: T84.7XXA Infection and inflammatory reaction due to other internal orthopedic prosthetic devices, implants and grafts, initial encounter (principal); M19.072 Primary osteoarthritis, left ankle and foot; M86.9 Osteomyelitis, unspecified
CPT/HCPCS: 20702; 20680 ×2; 11044; 36415; 36573; 73610; 73700; 76000; 80048; 80202; 85025; 85651; 86140; 87070; 87075; 87205; 87801; 97116; 97161; 97165; 97530; 97535; G0378; J0171; J0690; J0696; J1642; J2405; J2543; J2704; J3010

== ENCOUNTER → 2024-06-11 11:03 | Outpatient (CLI) | payer OTHER, SELFPAY ==
[2024-03-02 18:08] VITALS: BMI 25.7
--- NOTE | 2024-06-11 | DI.MRI.S_ITS ---
PROCEDURE: MR ANKLE LT WO/W CON INDICATIONS: LEFT ANKLE PAIN/HX OF SUBTALAR FUSION INFECTION TECHNIQUE: Noncontrast sagittal T1 spin echo and T2 fast spin echo with fat saturation, axial proton density fast spin echo and T2 fast spin echo with fat saturation, axial T1 spin echo with fat saturation, coronal T1 spin echo and T2 fast spin echo with fat saturation through the ankle/hindfoot. Post-contrast axial, coronal, and sagittal T1 spin echo with fat saturation through the ankle/hindfoot. COMPARISON: [facility], CT, CT LE LT WO CON, 03/02/2024, 17:29. [facility] [place], CR, XR ANKLE 3 VIEWS WEIGHT BEARING LEFT, 04/12/2024, 9:47. [facility] [place], CR, XR ANKLE 3+ VIEWS LEFT, 05/31/2024, 9:34. FINDINGS: Image quality: Excellent. Bones and joints: Postsurgical changes are seen from prior subtalar fixation with interval hardware removal. No definite osseous fusion is seen across the subtalar joint line, although there is severe joint space narrowing and irregularity of the articular surfaces with subchondral edema and subchondral cystic changes. Healed calcaneal osteotomy. Small posterior and plantar calcaneal enthesophytes. Diffuse full-thickness cartilage loss is seen in the tibiotalar joint with subchondral cystic changes and subchondral edema. Osseous edema and cystic changes are seen at the distal fibula. Moderate tibiotalar effusion with enhancing synovial hypertrophy. A few ossifications adjacent to the joint are suspicious for intra-articular loose bodies. There is decreased intrinsic T1 signal in the calcaneus and talus as well as the distal tibia and fibula adjacent to the mortise joint. No enhancing soft tissue mass. No focal fluid collection is seen. Medial structures: Suspected chronic partial tearing of the the deltoid ligament. Spring ligament components are not well visualized. Mild posterior tibialis and flexor digitorum longus tenosynovitis. Flexor hallucis longus tendon is intact. The posterior tibial neurovascular bundle appears normal within the tarsal tunnel, without extrinsic mass effect. Lateral structures: Chronic complete tearing of the anterior talofibular ligament and likely the calcaneofibular ligament. Posterior talofibular ligament is poorly visualized. The anterior and posterior tibiofibular ligaments are intact. There is anterior subluxation of the peroneus brevis tendon at the level of the distal fibular tip with superimposed peroneus brevis and longus severe tendinosis and likely partial tearing. There is effacement of the normal fat signal in the sinus tarsi. Anterior structures: The tibialis anterior, extensor hallucis longus, and extensor digitorum longus tendons appear intact. The dorsal talonavicular ligament appears intact. Posterior and plantar structures: The Achilles tendon is thickened with focal partial tearing near the mild tendinous junction. There is moderate to severe proximal plantar fasciitis without an acute fluid-filled defect. Mild grade 2 fatty infiltration of the intrinsic foot musculature without disproportionate atrophy of the abductor digiti minimi muscle. IMPRESSION: 1. Postsurgical changes from subtalar fusion with subsequent hardware removal. Severe degenerative changes are seen in the subtalar joint without osseous bridging. 2. Osseous edema and enhancement throughout the calcaneus and talus and the adjacent portions of the distal tibia and fibula with associated loss of T1-weighted signal. No definite osseous erosions. Moderate tibiotalar effusion with enhancing synovial hypertrophy. Findings may be secondary to diffuse full thickness cartilage loss although osteomyelitis/septic arthritis cannot be excluded and clinical correlation is recommended. 3. Severe peroneus brevis and longus tendinosis and partial tearing and. There is anterior subluxation of the peroneus brevis tendon. 4. Chronic complete tearing of the anterior talofibular ligament and likely the calcaneofibular ligament. 5. Mild tenosynovitis of the distal posterior tibialis and flexor digitorum longus tendons. 6. Severe Achilles tendinosis with partial tearing at the myotendinous junction. 7. Marked chronic proximal plantar fasciitis. 1. Approved by: Douglas Cassidy M.D. on 06/13/2024 at 14:02
== END ==
PROVIDERS: Family Provider Family Medicine; PCP Family Medicine; Referring Provider Orthopaedic Surgery Foot and Ankle Surgery; Visit Provider Orthopaedic Surgery Foot and Ankle Surgery
DX: S93.492A Sprain of other ligament of left ankle, initial encounter (principal); S86.012A Strain of left Achilles tendon, initial encounter; S96.812A Strain of other specified muscles and tendons at ankle and foot level, left foot, initial encounter; M25.472 Effusion, left ankle; M65.972 Unspecified synovitis and tenosynovitis, left ankle and foot; M72.2 Plantar fascial fibromatosis; M25.572 Pain in left ankle and joints of left foot; Z98.1 Arthrodesis status
CPT/HCPCS: 73723; A9579

== ENCOUNTER 2024-10-12 06:03 | Day surgery (SDC) | payer OTHER, SELFPAY ==
[2024-03-02 18:08] VITALS: BMI 25.7
[2024-10-11 13:03] VITALS: BMI 26.8
[2024-10-12] VITALS (14 sets, daily range): BP systolic 98–142; BP diastolic 61–97; PULSE 81–103; RESP 13–20; TEMP 36.3–36.6; O2SAT 92–98; BMI 26.4; BMI 26.9
--- NOTE | 2024-10-12 | DI.RAD.S_ITS ---
PROCEDURE: XR ANKLE RT MIN 3V INDICATIONS: RT ANKLE ORIF TECHNIQUE: Low resolution intraoperative fluoroscopic spot films were obtained COMPARISON: [facility], CR, XR ANKLE LT MIN 3V, 03/02/2024, 15:36. FINDINGS: Intraoperative fluoroscopic spot films show hindfoot arthrodesis with instrumentation including calcaneal osteotomy all in appropriate position. IMPRESSION: Fluoroscopic guidance Approved by: Guy Waters M.D. on 10/12/2024 at 12:05
--- NOTE | 2024-10-12 06:56 | PM.PREOP ---
Pre-operative Note Interval Note History & Physical reviewed/Exam performed by Physician: Yes Changes to H&P: No
[2024-10-12] MEDS: LACTATED RINGERS 1,000 ML 42 ML IV (07:21)
[2024-10-12] MEDS: dilTIAZem CD 120 MG CAP PO (07:21)
[2024-10-12] MEDS: CELECOXIB 200 MG CAPSULE 400 MG PO (07:21)
--- NOTE | 2024-10-12 07:53 | SUR.PREOP ---
Time out 0730 Block start time 0735 . Monitoring initiated and maintained throughout procedure. Oxygen and medications given by anesthesiologist instructions. Patient remained stable throughout procedure, no adverse reactions noted. Block end time 0744.
[2024-10-12] MEDS: CEFAZOLIN 2 GM/100 ML PREMIX 100 ML IV ×3 (07:58→23:38)
[2024-10-12] MEDS: TRANEXAMIC ACID 1,000 MG VIAL 1000 MG INJ ×2 (08:00→10:53)
--- NOTE | 2024-10-12 08:19 | SUR.OPER ---
Supine on padded OR bed, head on pillow, arms secured on padded arm boards at <90 degrees abduction, legs uncrossed, left leg secured with blanket and tape, right leg bumped with blankets, prepped into field, safety belt at thigh.
[2024-10-12] MEDS: BUPIVACAINE LIPOSOME 266 MG/20 ML VIAL INJ (08:28)
[2024-10-12] MEDS: BUPIVACAINE 0.25% (PF) 60 ML, EPINEPHrine 0.3 MG INJ (11:05)
--- NOTE | 2024-10-12 12:01 | P.OP_ITS ---
Operative Date/Time/Diagnoses Date of procedure: 10/12/24 Time of procedure: 07:50 Pre-op diagnosis: Right subtalar arthritis, right retained hardware, right ankle and foot deformity planovalgus Post-op diagnosis: same Procedure & Clinicians Procedure: Triple arthrodesis right foot CPT code 06732 Osteotomy calcaneus separate incision CPT code 44000 +59 right Removal of deep implant CPT code 22101 x4 (4 separate incisions and sites) modifier for separate incisions +59 right Release peroneal tendons CPT code 80375 right Modifier 22 for severe deformity posttraumatic requiring separate hardware were decisions and extensive dissection mobilization to correct severe rigid deformity of the foot requiring extra effort and time twice as long as standard triple arthrodesis. Same procedure as scheduled: Yes Indications: The patient is a 74-year-old male that has acquired pes planovalgus deformity, right, rigid and foot arthritis underneath a previous ankle fusion performed at [facility] many years ago. He has been indicated for triple arthrodesis to correct his foot malalignment. He will require separate hardware removal. This is severe rigid deformity that is anticipated to require a separate medial displacement osteotomy due to the severe valgus. The risks and benefits of the procedure have been discussed with the patient and given the opportunity to ask questions. The risks of surgery include but are not limited to infection, malunion, nonunion, persistence of pain, damage to nerves and blood vessels, posttraumatic arthritis, DVT, PE, coardiopulmonary complications and . The patient expressed a thorough understanding of the risks and benefits of surgery and has elected to proceed. Consent was signed. Surgeon: Autumn Ott Click Yes if Unassisted: Yes Anesthesia Type: General, Peripheral nerve block and Local Operative Notes Findings: Severe pes planovalgus. Previous tibiotalar fusion with retained hardware. Selected hardware removed from the tibiotalar fusion to allow for the triple arthrodesis. Four separate screws from 4 separate incisions removed with large frag screwdriver. Additional hardware maintained. Medial displacement calcaneal osteotomy and closing medial wedge osteotomy of the subtalar joint and preparation of the calcaneocuboid joint were completed as well as release of the peroneal tendons to allow correction of the severe pes planovalgus deformity. Once this was completed the reductions were pinned and then placed with 5.0 and 7.0 headless cannulated screws from the Arthrex set. Closure Type: primary Specimen(s): none sent Prosthetic devices, grafts, tissues, transplants, or devices: Arthrex 7.0 screws headless cannulated Arthrex 5.0 screws headless cannulated Estimated Blood Loss (mL): 200 Blood products transfused: none Tourniquet time (min): 126 Procedure in detail: Patient was seen in the preoperative area the site of surgery was marked informed consent confirmed. This was the right lower extremity. Patient was then brought back to the operating room by the anesthesia team positioned supine on operative table. Anesthetic was administered. The right lower extremity was prepped with a thigh tourniquet. Bony prominences were well padded. An ipsilateral thigh bump was placed. Right lower extremity was prepped and draped in the standard sterile fashion a formal time-out procedure was performed confirming the patient's side and site of surgery administration of appropriate preoperative antibiotics all were in agreement. Attention turned to the right lower extremity there was a rigid severe pes planovalgus deformity and a previous ankle fusion. Esmarch was used for exsanguination the tourniquet raised on the thigh to 250 mmHg. C-arm was brought in and the planned hardware removal were marked out on the skin these were 4 separate incisions for 4 separate screws from the previous ankle fusion. Small incisions were made near the locations of the screws this was dissected down to bone and the large frag screwdriver was used to remove 4 separate large frag 4.5 screws from the previous ankle fusion through 4 separate incisions. Once this was completed attention turned to the hindfoot fusion. A small posterior incision was made along the ankle to released the peroneus longus and brevis tendons. Then a separate small incision was made under fluoroscopic guidance the level of the calcaneocuboid joint and the minimally invasive joint prep bur was inserted in the calcaneal joint and this was prepped through a minimally invasive technique. Next a medial incision was made from the talar head through the navicular extending to the tip of the medial malleolus for the medial double approach to the subtalar joint and talonavicular joint. This was dissected down through the skin subcutaneous tissue. Posterior tibialis tendon was released. Talonavicular and subtalar joints were exposed. These were prepped using the osteotomes and minimally invasive bur. Due to the severe deformity a medial closing wedge was taken so a K-wire was placed across the distal talus from medial to lateral and then the large sagittal saw was used to remove a medial wedge of bone once this was removed additional minimally invasive burs were used posteriorly to remove any remaining mode posteriorly and laterally to aid with translation once this was completed reduction was atte mpted. There was still significant valgus so a separate decision for a medial displacement osteotomy of the calcaneus was made therefore A separate incision was made laterally in line with the planned calcaneus osteotomy this was dissected through the skin subcutaneous tissue down to the level of the calcaneus. The osteotomy trajectory was marked a guidewire pin was placed and then the saw was used to create the osteotomy this was mobilized and translated medially and then fixed provisionally with a K-wire. Then the subtalar and talonavicular calcaneocuboid hindfoot joints were reduced and pinned. Once alignment was appropriate on intraoperative fluoroscopy cannulated wires were placed measured and drilled for the cannulated screw placement with 7.0 screws across the calcaneal osteotomy 1st. Then additional 7.0 screws were placed across the hindfoot joins for the triple arthrodesis. Additionally 5 cc of Arthrex . Demineralized bone matrix and PRP were mixed and inserted into the fusion sites to aid with bone healing. Once this was completed final intraoperative fluoroscopic images in AP of foot AP ankle lateral ankle and axial alignment views indicated appropriate hardware placement and correction of the severe deformity. Once this was completed tourniquet was released hemostasis was achieved. The was were closed in layer was 2-0 Vicryl 4-0 Monocryl and 3-0 nylon suture. 0.25% Marcaine and Exparel mixture 266 mg were injected for local anesthetic. Sterile dressing was placed with Xeroform gauze Webril bulky Petersen cotton and a posterior and U splint in neutral alignment. The patient was awoken from anesthesia and taken to recovery room in good condition there were no immediate complications for this procedure. Counts were correct. Complications: none Post-operative Condition: stable Disposition: PACU Plan for aftercare: Nonweightbearing x8 weeks right lower extremity. Elevate to heart level. Keep splint clean dry and intact. Aspirin 325 mg daily for DVT prophylaxis. Follow up in Orthopedic Clinic as scheduled.
[2024-10-12] MEDS: OXYCODONE IR 5 MG TABLET PO (12:19)
[2024-10-12] MEDS: ACETAMINOPHEN 325 MG TABLET 975 MG PO (12:20)
[2024-10-12] MEDS: IBUPROFEN 600 MG TABLET PO ×2 (13:08→18:20)
[2024-10-12] MEDS: LACTATED RINGERS 1,000 ML 100 ML IV ×2 (13:09→23:38)
--- NOTE | 2024-10-12 13:45 | PT.IIE ---
Current Diagnoses Primary osteoarthritis, right ankle and foot (10/12/24) Flat foot [pes planus] (acquired), right foot (10/12/24) Pain due to internal orthopedic prosthetic devices, implants and grafts, initial encounter (10/12/24) Surgery Performed Operation Date: 10/12/24 07:45 Actual Procedures p Correction rigid foot deformity with subtalar fusion talonavicular joint fusion possible calcaneocuboid fusion, hardware removal ankle, possible medial calcaneal displacement osteotomy, triple arthrodesis, PERONEAL TENDON RELEASE(Right) - Autumn Ott MD Surgical History (Last Updated 10/05/24 @ 10:16 by Belinda Davenport, RN) History of cataract surgery History of knee replacement Hx of ankle fusion (10/07/23) S/P cervical spinal fusion S/P hardware removal (03/02/24) Medical History (Last Updated 10/05/24 @ 10:14 by Belinda Davenport, RN) Afib Aortic dilatation History of arthritis History of depression History of headache Osteomyelitis (02/2024) Physical Therapy Inpatient Evaluation/Re-Eval M1 PT/OT-IP Prior Functional Status Start: 10/12/24 16:33 Freq: NEEDED Status: Active Protocol: Document 10/12/24 13:45 AB (Rec: 10/12/24 17:08 AB [id number]) Medical Review Prior Functional Status Medical History Reviewed Yes Communication able to make needs known Mobility and Gait pt stated that he was independent with all mobilities and ambulation without AD; stated that he is strong and even does crossfit Activities of Daily Living and IADL's Pt states able to do ADL needs . Social History Household Members spouse Living Arrangements House Number of Floors (Floors) One Floor Number of Stairs To Enter/Railing? Pt has one step to enter the house; needs to walk ~ 60 ft ramp to get to the entrance step has one step to get to kitchen area Home Environment Standard Height Toilet,High Toilet,Walk in Shower Home Equipment Front Wheel Walker,Bedside Commode,Shower Seat without Backrest,Sales Support Assistant,Grab Bars In Shower Additional Social History Comment Pt has a knee scooter M2 PT-IP Current Condition Start: 10/12/24 16:33 Freq: NEEDED Status: Active Protocol: Document 10/12/24 13:45 AB (Rec: 10/12/24 17:08 [id number]) Physical Therapy Current Condition Current Condition Evaluation Date 10/12/24 Treatment Diagnosis s/p R ankle fusion; difficulty in walking Onset Date 10/12/24 M3 PT-IP Subjective Start: 10/12/24 16:33 Freq: NEEDED Status: Active Protocol: Document 10/12/24 13:45 AB (Rec: 10/12/24 17:08 [id number]) Subjective Physical Therapy Visit Type Type Initial Evaluation Visit Start Time 13:45 Visit Stop Time 15:35 Number of TECHNICAL SALES ADVISOR Visits 0 Physical Therapy Visit Comments Patient Comments agreeable to do PT Therapy Pain Assessment Pain When Pain Assessed At Rest Pain Present Pain Present Pain Reported Location Right Foot Intensity 2 Scale Used Numeric (0 - 10) Pain Management Techniques Distraction,Modification of Treatment,Re-positioning, Timing of Activity with Medications M4 PT-IP Mobility and Gait Start: 10/12/24 16:33 Freq: NEEDED Status: Active Protocol: Document 10/12/24 13:45 AB (Rec: 10/12/24 17:08 [id number]) PT-Bed Mobility Assessment Supine to Sit Supine to Sit Standby Assistance PT-Transfer Assessment Sit to and From Stand Sit to and from Stand Minimal Assistance,1 Person Assistance,Use of Upper Extremities Equipment Transfer Assistive Device Gait Belt Orthotic/Prosthetic Devices or Brace: No Comments Mobility Comments pt in bed and agreeable to do PT. obtained PLOF and home set up. BP in supine: 106/72. pt informed PT that he holds on to the door jam on L side and then lifts his scooter to the step to enter the house. educated pt on safety and informed about having his spouse assist him with lifting knee scooter up the step. Pt has decrease insight and stated that he can do it himself. pt also informed PT that he has been practicing using his knee scooter and knows what he needs to do. pt completed supine to sit SBA . able to sit on EOB SBA. BP: 101/72. pt sat on EOB for ~ 2min. BP rechecked: 105/62. spouse arrive and has pt's knee scooter. educated pt on NWB on RLE and how to maintain NWB on RLE for sit to stand and standing. instructed pt to position knee scooter the way he has been practicing. pt positioned knee scooter in between his leg. sit to stand min A but pt unable to position RLE onto knee scooter. PT positioned knee scooter on R side and sit to stand again min A and cues and positioned RLE to scooter. pt was unsteady and stated that he cannot feel RLE . (pt initially stated that he has his sensation back on BLE ). instructed pt to sat back on EOB min A. pt questioned why he cannot just get up how he was practicing it at home. informed pt that, that was how he did on the first attempt to get up but he was unable to position RLE to the scooter. pt with slight confusion and decrease memory. attempted sit<>stand again a few times ~ 3 more time requiring min A and max cues and pt with unsteady transition of RLE to scooter. repositioned knee scooter across pt and PT demonstrated on how to get up with this position and pt completed min A and more stable transition. pt ambulated ~ 8 ft using knee scooter min A and max cues. opted to limit ambulation for safety at this time due to pt still has numbness on RLE. pt sat back on EOB. BP: 124/84. informed pt's spouse regarding use of w/c for outdoor/long distance ambulation and possibly to get into the house unless spouse will be able to assist pt with the one step. Spouse is not sure if she will be able to assist pt with the step. Left pt with OT. Gait Assessment Gait Gait Assistance Required: Minimum Assistance Distance (Feet) 8 Able to Maintain Weight Bearing Status Yes During Gait Assistive Devices Assistive Device None Orthotic/Prosthetic Devices or Brace: Yes Factors Limiting Gait Function Factors Limiting Gait Function Decreased Activity Tolerance, Decreased Sensation,Decreased Strength,Difficulty Following Directions,Incoordination, Limited Range of Motion,Pain, Poor Balance,Poor Safety Awareness PT-Balance Assessment Sitting Balance and Reactions Static Sitting Balance Ability Normal Dynamic Sitting Balance Ability Good Standing Balance and Reactions Static Standing Balance Ability Fair Dynamic Standing Balance Ability Fair Device Used knee scooter M5 PT-IP Objective Assessments Start: 10/12/24 16:33 Freq: NEEDED Status: Active Protocol: Document 10/12/24 13:45 AB (Rec: 10/12/24 17:08 AB [id number]) Orientation Orientation/Cognition Level of Alertness Confusional State Orientation Name,Situation Safety Awareness Decreased Safety Awareness Memory Description Short Term Impaired Gross Range of Motion Lower Extremity ROM Assessment Right Impaired Impairments R ankle on soft cast Strength Lower Extremity Strength Assessment Right Impaired Ankle NT Sensation Assessment Sensation Sensation Description Numbness Comments Sensation Comments RLE numbness and stated that he has has LE neuropathy Muscle Tone Muscle Tone WNL Yes M6 PT-IP Treatment Start: 10/12/24 16:33 Freq: NEEDED Status: Active Protocol: Document 10/12/24 13:45 AB (Rec: 10/12/24 17:08 AB [id number]) Physical Therapy Treatment Education Education Provided Precautions,Weight Bearing Status,Safety M7 PT-IP Assessment and Plan Start: 10/12/24 16:33 Freq: NEEDED Status: Active Protocol: Document 10/12/24 13:45 AB (Rec: 10/12/24 17:08 AB [id number]) PT Summary Assessment and Plan Potential Rehabilitation Potential Fair Status of Condition at Evaluation Evolving Summary Impairments Pain,ROM,Strength,Balance, Coordination,Sensation,Tone, Cognition,Bed Mobility, Transfers,Gait,Activity Tolerance Assessment Summary pt is a 74 y/o M s/p R ankle fusion POD0 and is NWB on RLE. pt requiring min A for sit to stand and ambulation using knee scooter. pt plans to go home and spouse to assist. pt just had surgery this morning and has some confusion affecting safety awareness and carryover of techniques. will continue to assess progress and when appropriate, conduct caregiver training and stair climbing training. will continue to assess. Goals Bed Mobility Goal Independent Transfer Goal Independent Gait Goal Independent Gait Distance 150 Other Goals to use knee scooter for transfer and ambulation up/down one step using knee scooter CGA Days to Meet Goals 5 Frequency of Treatment Frequency Of Treatment Once a Day Treatment Plan Physical Therapy Treatment Plan Bed Mobility Training,Transfer Training,Gait Training, Therapeutic Exercise,Balance Retraining,Post Op Education, Discharge Planning,Hot or Cold Pack,Neuromuscular Re-ed, Coordination Retraining,Manual Therapy Weight Bearing Status Weight Bearing Status Non-Weight Bearing Allowed Weight Bearing Amount (enter % RLE NWB or #) (%) Recommendations To Nursing Amount of Assist Needed 1 Person Assist Discharge Recommendations PT Discharge Recommendations Home with 26/01 Assist Available,Home Health Transportation Needs at Discharge Private Vehicle - PT assist 1
[2024-10-12] MEDS: ACETAMINOPHEN 325 MG TABLET 650 MG PO ×2 (14:02→21:40)
--- NOTE | 2024-10-12 15:47 | OT.IP.EVAL ---
Current Diagnoses Primary osteoarthritis, right ankle and foot (10/12/24) Flat foot [pes planus] (acquired), right foot (10/12/24) Pain due to internal orthopedic prosthetic devices, implants and grafts, initial encounter (10/12/24) Surgery Performed Operation Date: 10/12/24 07:45 Actual Procedures p Correction rigid foot deformity with subtalar fusion talonavicular joint fusion possible calcaneocuboid fusion, hardware removal ankle, possible medial calcaneal displacement osteotomy, triple arthrodesis, PERONEAL TENDON RELEASE(Right) - Autumn Ott MD Past Medical History (Last Updated 10/05/24 @ 10:14 by Belinda Davenport, RN) Afib Aortic dilatation History of arthritis History of depression History of headache Osteomyelitis (02/2024) Surgical History (Last Updated 10/05/24 @ 10:16 by Belinda Davenport, RN) History of cataract surgery History of knee replacement Hx of ankle fusion (10/07/23) S/P cervical spinal fusion S/P hardware removal (03/02/24) Occupational Therapy Inpatient Evaluation/Re-Eval M1 PT/OT-IP Prior Functional Status Start: 10/12/24 13:43 Freq: NEEDED Status: Active Protocol: Document 10/12/24 16:03 [facility] (Rec: 10/12/24 16:25 [facility] Desktop) Medical Review Prior Functional Status Communication I Activities of Daily Living and IADL's Pt states able to do ADL needs . Prior Functional Level (Other details) Pt's to be home to assist . Social History Household Members spouse Living Arrangements House Number of Floors (Floors) One Floor Number of Stairs To Enter/Railing? Pt has a threshold to be able to get through the front door. One step down to step from the bedroom/bathroom area to kitchen and living areas of the house. Home Environment Standard Height Toilet,High Toilet Home Equipment Front Wheel Walker,Bedside Commode,Shower Seat without Backrest,Route Specialist,Grab Bars Near Toilet,Grab Bars In Shower Additional Social History Comment Pt has a knee scooter. M2 OT-IP Current Condition Start: 10/12/24 13:43 Freq: Status: Active Protocol: Document 10/12/24 16:03 [facility] (Rec: 10/12/24 16:25 [facility] Desktop) Occupational Therapy Current Condition Current Condition Evaluation Date 10/12/24 Treatment Diagnosis Right ankle sx Diagnosis Onset Date 10/12/24 Weight Bearing Status Weight Bearing Status Non-Weight Bearing Allowed Weight Bearing Amount (enter % Per operative note , pt to be or #) (%) NWB for RLE for 8 weeks. M3 OT- IP Subjective and Pain Start: 10/12/24 13:43 Freq: Status: Active Protocol: Document 10/12/24 16:03 [facility] (Rec: 10/12/24 16:25 [facility] Desktop) OT- Subjective Occupational Therapy Visit Type Type Initial Evaluation Visit Start Time 14:35 Visit Stop Time 15:47 Occupational Therapy Visit Comments Patient Comments Pt doing PT eval when OT arrived. Patient/Caregiver Goals TO go home. OT Pain Assessment Pain When Pain Assessed At Rest Pain Present Pain Present Pain Reported Location Right Foot Intensity 5 Scale Used Numeric (0 - 10) M4 OT- IP ADL's Start: 10/12/24 13:43 Freq: Status: Active Protocol: Document 10/12/24 16:03 [facility] (Rec: 10/12/24 16:25 [facility] Desktop) OT [id number] Comments OT Self-Feeding Comments Not at meal time. OT ADL-Grooming Comments OT Grooming Comments Did not perform. OT ADL-Oral Care Comments Oral Care Comments Did not perform. OT ADL-Dressing Comments OT Dressing Comments Educated best to dress his RLE first and take out last. Pt states has zippered pants and also suggested to have baggy shorts will be easier to manage. OT ADL-Toileting Comments OT Toileting Comments Suggested pt take the urinal home. Also showed pt may be easier to use the bsc over the toilet versus FWW. OT ADL-Bathing Comments OT Bathing Comments Showed pt option of tub bench if going to use the tub/shower . Otherwise may be best to sponge initially until stronger to be able to get into the shower. Pt is aware his splint/cast will need to be covered from getting wet. M5 OT- IP IADL's Start: 10/12/24 13:43 Freq: Status: Active Protocol: Document 10/12/24 16:03 [facility] (Rec: 10/12/24 16:25 [facility] Desktop) OT-Instrumental Activities of Daily Living Home Safety Awareness Home Safety Comments Pt is still groggy but insistent that he is able to do well at home with all his needs. M6 OT- IP Functional Cognition Start: 10/12/24 13:43 Freq: Status: Active Protocol: Document 10/12/24 16:03 [facility] (Rec: 10/12/24 16:25 [facility] Desktop) Cognitive Factors Limiting Selfcare Function Cognitive Ability Level of Alertness Alert,Drowsy Patient Orientation Name,Place,Situation Attention Span Ability Capable of Focused Attention, Unable to Sustain Attention Ability to Follow Commands Able to Follow One Step Commands with Increased Time, Able to Follow One Step Commands with Repetition Cognitive Comments Cognitive Assessment Comments Pt is a bit groggy from sx this morning and needing concrete cues to follow. OT- Vision and Hearing OT- Hearing Assessment OT- Hearing Assessment WFL OT- Vision Assessment Visual Acuity WFL Vision Assessment Comments Pt states wears his glasses as needed. M7 OT- IP Mobility and Balance Start: 10/12/24 13:43 Freq: Status: Active Protocol: Document 10/12/24 16:03 [facility] (Rec: 10/12/24 16:25 [facility] Desktop) OT-Transfer Assessment Sit to and From Stand Sit to and from Stand Minimal Assistance Transfers Transfer Ability Minimal Assistance Technique Transfer Destination Bed Transfer Technique Stand Step Pivot Devices Transfer Assistive Devices Gait Belt Comments Mobility Comments Pt needing ALYX for balance while trying to get from the bed to knee scooter. OT- Balance Assessment Sitting Balance and Reactions Static Sitting Balance Ability Good Dynamic Sitting Balance Ability Good Standing Balance and Reactions Static Standing Balance Ability Poor Dynamic Standing Balance Ability Poor Comments Other Balance Tests/Deviations/Treatment Pt unsteady on his LLE. : Suggested best for pt to get a wc to help negotiate the step in the house. Pt states has been able to practice to lean with his right side of his body and hand on the wall while able to car pick up driver the scooter with his left hand up the step. At this time best for his to assist with the scooter management needs. Pt would greatly benefit from home health to help go over safety in their house environment. M8 OT- IP Objective Assessments Start: 10/12/24 13:43 Freq: Status: Active Protocol: Document 10/12/24 16:03 [facility] (Rec: 10/12/24 16:25 [facility] Desktop) OT Gross Range of Motion Upper Extremity Range of Motion Assessment Within Functional Limits OT Strength Upper Extremity Strength Assessment Within Functional Limits Comments Strength Comments WFL for needs. M9 OT- IP Assessment and Plan Start: 10/12/24 13:43 Freq: Status: Active Protocol: Document 10/12/24 16:03 [facility] (Rec: 10/12/24 16:25 [facility] Desktop) OT Summary Assessment and Plan Potential Rehabilitation Potential Good Analytic Complexity at Evaluation Low Summary OT Impairments Pain,Strength,Balance, Functional Mobility,Self- Feeding,Grooming,Dressing, Toileting,Shower Transfers, Activity Tolerance Progress Towards Goals Slow Progress due to Pain,Slow Progress due to Medical Issues,Slow Progress due to Activity Tolerance Assessment Summary Pt low complexity and main barriers are step, pt still numb and groggy just from having surgery this morning. Pt is unsteady on his feet and having difficulty to follow commands as still groggy from sx this morning. Pt to go home with his to assist 24/7 and benefit from home health. Goals Self-Feeding Goal Independent Grooming Goal Independent Dressing Goal Independent Toileting Goal Independent Bathing Goal Minimal Assistance Toilet Transfer Goal Independent Shower Transfer Goal Contact Guard Assistance Days to Meet Goals 10 Frequency of Treatment Other frequency 5x/week Treatment Plan OT Treatment Plan ADL Training,Functional Mobility,Patient/Family Education,Discharge Planning Discharge Recommendations OT Discharge Recommendations Home with 24/7 Assist Available,Home Health Transportation Needs at Discharge Private Vehicle
[2024-10-12] MEDS: DOCUSATE 100 MG CAPSULE PO (21:40)
[2024-10-12] MEDS: SENNOSIDES 8.6 MG TABLET 17.2 MG PO (21:41)
[2024-10-13 05:12] LABS: Add Manual Diff / Slide Review NO; Basophils Absolute Auto 0 /uL (0-100); Basophils Percent Auto 0.2 % (0-2); Eosinophils Absolute Auto 0 /uL (0-450); Eosinophils Percent Auto 0.1 % (2-4); Hematocrit 35.8 % (41-53); Hemoglobin 12.7 g/dL (13.5-17.5); Lymphocytes Absolute Auto 800 /uL (1100-4500); Lymphocytes Percent Auto 9.8 % (25-40); Mean Corpuscular HGB Conc 35.5 % (30-36); Mean Corpuscular Hemoglobin 30.8 PG (26-34); Mean Corpuscular Volume 86.9 fL (80-100); Monocytes Absolute Auto 800 /uL (0-900); Monocytes Percent Auto 10.3 % (3-14); Neutrophils Absolute Auto 6400 /uL (1500-7000); Neutrophils Percent Auto 79.6 % (50-75); Platelet Count 171 X10^3/uL (150-400); Red Blood Cell Count 4.12 X10^6/uL (4.5-5.9); Red Cell Distribution Width 14.5 % (11.6-14.8)
[2024-10-13 05:33] LABS: Blood Urea Nitrogen 20 mg/dL (9-20); Carbon Dioxide 26 mmol/L (22-32); Chloride 106 mmol/L (98-107); Estimated Glomerular Filt Rate > 60 mL/min (>60); Glucose 112 mg/dL (80-110); HEMOLYSIS < 15 (0-50); Sodium 137 mmol/L (137-145)
[2024-10-13] MEDS: IBUPROFEN 600 MG TABLET PO (07:44)
[2024-10-13] MEDS: ACETAMINOPHEN 325 MG TABLET 650 MG PO (07:44)
--- NOTE | 2024-10-13 07:44 | P.PN_ITS ---
Subjective Subjective Date Patient Seen: 10/13/24 Time Patient Seen: 07:44 Interval history: Postop day 1 right triple arthrodesis and hardware removal. Doing well. Pain controlled. Labs stable. Exam Vital Signs (past 8 hours): Oxygen Delivery Method Room Air Oxygen Flow Rate 0 Narrative Exam Narrative: Splint clean dry and intact. Patient alert and oriented no acute distress. Toes pink and well perfused. Block still partially and affect. Can wiggle toes slightly. Objective Labs 10/13/24 04:50 10/13/24 04:50 Labs: Laboratory Results - last 24 hr 10/13/24 04:50 WBC 8.0 RBC 4.12 L Hgb 12.7 L Hct 35.8 L MCV 86.9 MCH 30.8 MCHC 35.5 RDW 14.5 Plt Count 171 Neut % (Auto) 79.6 H Lymph % (Auto) 9.8 L [place] % (Auto) 10.3 Eos % (Auto) 0.1 L Baso % (Auto) 0.2 Neut # (Auto) 6400 Lymph # (Auto) 800 L [place] # (Auto) 800 Eos # (Auto) 0 Baso # (Auto) 0 Sodium 137 Potassium 4.0 Chloride 106 Carbon Dioxide 26 BUN 20 Creatinine 0.87 Estimated GFR > 60 BUN/Creatinine Ratio 23.0 H Glucose 112 H Calcium 9.0 PFSH Medical History (Updated 10/05/24 @ 10:14 by Belinda Davenport RN) Osteomyelitis (02/2024) History of depression History of arthritis History of headache Aortic dilatation Afib Surgical History (Updated 10/05/24 @ 10:16 by Belinda Davenport RN) S/P cervical spinal fusion S/P hardware removal (03/02/24) Hx of ankle fusion (10/07/23) History of knee replacement History of cataract surgery Social History household members: spouse Smoking Status: Never smoker alcohol intake: current Assessment & Plan Post-op Postoperative Procedures: Procedures Operation Date: 10/12/24 07:45 Actual Procedure Side Surgeon p Correction rigid foot deformity with subtalar fusion talonavicular joint fusion possible calcaneocuboid fusion, hardware removal ankle, possible medial calcaneal displacement osteotomy, triple arthrodesis, PERONEAL TENDON RELEASE Right Autumn Ott MD Postoperative day: 1 Postoperative status: doing well Postoperative plan: routine post-op care Postoperative plan narrative: Touchdown or nonweightbearing right lower extremity. Plan discharge home today. Time Spent With Patient Time with patient: less than 15 minutes Quality VTE Deep Vein Thrombosis/Pulmonary Embolism Present on Admission: No
--- NOTE | 2024-10-13 07:46 | PM.DS.1 ---
History of Present Illness History of Present Illness Date Patient Seen: 10/13/24 Time Patient Seen: 07:47 Date of Onset of Symptoms: 10/12/24 Chief complaint: SDC Narrative: Status post triple arthrodesis right foot. Doing well. Stayed overnight hospital plan discharge postop day 1. Discharge Providers Provider Date of admission: 10/12/24 Discharge Date: 10/13/24 Primary care physician: Jovany Leal MD Consults: 10/12/24 06:00 Consult to Anesthesiology Routine Comment: Consulting Provider: Anesthesiologist Reason for consultation: Regional block for post operative pain control Has provider been notified: No 10/12/24 07:50 Consult to Physical Therapy Evaluate & Treat Comment: Postop/PACU, nonweightbearing right lower extremit Physician Instructions: Evaluate and Treat 10/12/24 12:33 Consult to Discharge Planning Routine Comment: Consult to Occupational Therapy Evaluate & Treat Comment: Physician Instructions: Evaluate and treat Consult to Physical Therapy Evaluate & Treat Comment: Nonweightbearing right leg Physician Instructions: Evaluate and Treat Discharge provider: Autumn Ott MD Summary Hospital Course Discharge Diagnosis: Right foot arthritis and deformity Hospital Course: Had surgery for deformity correction with triple arthrodesis. Stayed in hospital overnight for physical therapy and pain control. Discharge postop day 1. Status at Discharge Cognitive/behavioral status at discharge: oriented Functional status at discharge: uses cane/walker Overall status at discharge: patient is progressing back to baseline Time Spent with Patient Time spent: Less than 30 minutes Exam Vital Signs (past 8 hours): Oxygen Delivery Method Room Air Oxygen Flow Rate 0 Narrative Exam Narrative: Splint clean dry and intact. Block still partially and affect. Brisk capillary refill. Patient alert and oriented no acute distress. Objective Labs 10/13/24 04:50 10/13/24 04:50 Labs: Laboratory Results - last 24 hr 10/13/24 04:50 WBC 8.0 RBC 4.12 L Hgb 12.7 L Hct 35.8 L MCV 86.9 MCH 30.8 MCHC 35.5 RDW 14.5 Plt Count 171 Neut % (Auto) 79.6 H Lymph % (Auto) 9.8 L [place] % (Auto) 10.3 Eos % (Auto) 0.1 L Baso % (Auto) 0.2 Neut # (Auto) 6400 Lymph # (Auto) 800 L [place] # (Auto) 800 Eos # (Auto) 0 Baso # (Auto) 0 Sodium 137 Potassium 4.0 Chloride 106 Carbon Dioxide 26 BUN 20 Creatinine 0.87 Estimated GFR > 60 BUN/Creatinine Ratio 23.0 H Glucose 112 H Calcium 9.0 PFSH Medical History (Updated 10/05/24 @ 10:14 by Belinda Davenport RN) Osteomyelitis (02/2024) History of depression History of arthritis History of headache Aortic dilatation Afib Surgical History (Updated 10/05/24 @ 10:16 by Belinda Davenport RN) S/P cervical spinal fusion S/P hardware removal (03/02/24) Hx of ankle fusion (10/07/23) History of knee replacement History of cataract surgery Social History household members: spouse Smoking Status: Never smoker alcohol intake: current Discharge Assessment & Plan Assessment and Plan Assessment: Stable for discharge home Plan of Treatment: Discharge home Discharge Plan Discharge Plan Patient Disposition: Home Discharge orders & Medications Discharge Orders: Discharge (Order); Ordered 10/13/24 Ordered By: Autumn Ott Prescriptions: Continued acetaminophen 500 mg Tablet 1,000 mg PO BID oxycodone 5 mg tablet 5 mg PO Q4H PRN (Reason: pain) Qty: 30 0RF meloxicam 15 mg Tablet 15 mg PO DAILY flecainide 100 mg Tablet 100 mg PO QAM diltiazem HCl 120 mg Capsule,Extended Release 24hr 120 mg PO DAILY sertraline [Zoloft] 50 mg Tablet 50 mg PO DAILY turmeric root extract 500 mg Tablet 1,000 mg PO DAILY Follow up/Referrals: Jovany Leal MD [Primary Care Provider] - Diet/Activity/Treatments Diet: Diet as Tolerated Other treatments: At-Home Instructions - Dr. Ott Surgery: Hindfoot fusion surgery Cast/Splint/Dressing Care Instructions 1) Keep cast/dressing clean and dry. 2) May bathe - but cast/dressing must remain dry. 3) Observe for increasing pain in the extremity: finger/toe-tips turning blue/purple, or numbness and tingling in your toes/fingers. Should any of these symptoms arise, you need to be seen immediately for evaluation of swelling and increasing compartment pressures within your affected extremity. 4) Keep your affected extremity elevated - Toes Above your Nose? - This is robert in the first two weeks after surgery to minimize swelling. 5) You may ice your extremity, being careful to prevent melting ice from saturating into the splint/cast. Activity Nonweightbearing lower extremity touching down for balance is okay Discharge Pain Medications You will be given a prescription for pain medication. You should start taking this the same day after your surgery. Wean off as tolerated. Do not wait to take the pain medication until the pain is severe, as it will be difficult to catch up once this occurs. The pain medication usually reaches its full effect ~1 hour after ingesting. If you have been sent home on Colace, this medication should be taken until you are off all narcotic (i.e. Vicodin, Percocet, Oxycodone, etc) pain medications, to prevent constipation. You may also obtain this or another stool softener over the counter to prevent or alleviate constipation. Percocet or Vicodin have Tylenol in their ingredient lists. You must be careful not to exceed 3,000mg (3 grams) of Tylenol, from all sources, within a single 24-hr period. This means that you may not take more than 10 pills within a 24-hr period. Do NOT take Regular or Extra Strength Tylenol when taking your Percocet or Vicodin medications. -IF you have been given a Toradol/ketorolac prescription, this is a very strong anti-inflammatory. Do not take [id number] anti-inflammatories (ibuprofen, Aleve, Advil, Motrin) while taking the Toradol/ketorolac. Once you are finished with this prescription, then you can resume jsxv-fre-nxjuquk anti-inflammatories. You can still take your narcotic pain medication and Tylenol while taking the Toradol/ketorolac. -Some common side effects of the narcotic pain medications (Percocet, Oxycodone, Vicodin, etc.) include nausea and itching. Benadryl is a great over the counter medication that helps calm your stomach, decreases your anxiety levels, and minimizes the itching. You can easily purchase this at your local pharmacy as an fykg-zpa-yjyqqeu medication. Please abide by the instructions as printed on the bottle. If your nausea persists, make sure to take small amounts of crackers or other cable armorer foods. -If have been given oxycodone 5 mg tablets, try to take the smallest dose needed to control your pain. Generally start with 5 mg every 4 hours as needed for pain. However you can increase this if you are having significant pain. The maximum dosage for oxycodone would be 15 mg or three (5 mg) tablets p.o. every 3 hours as needed for pain. As soon as pain is better controlled you should decrease the amount of medication your taking and increase the interval between doses. If you are given Percocet or Vicodin or [place] these are medications with the narcotic and Tylenol in them and they were dosing will need to keep in mind the maximum daily dosages for Tylenol/acetaminophen. Follow-Up/Emergency Contacts Please call for an appointment in either [place] or [place], if one has not been scheduled. Follow up 2-3 weeks after surgery. [phone] Contact the office if you have any of the following: ? Painful swelling or numbness ? Unrelenting pain ? Fever (over 101?- it is normal to have a low grade fever for the first day or two following surgery) or chills ? Redness around the incisions ? Color changes ? Continuous bleeding or drainage from the incision (a small amount is expected) ? Excessive nausea or vomiting ? Difficulty breathing If you have an emergency that requires immediate attention such as shortness of breath or chest pain, call 911 or proceed to the nearest emergency room. Blood Clot Prophylaxis While you are nonweightbearing he will need to take aspirin for DVT prophylaxis. Take a full 6 week cours (42 days) of Aspirin enteric coated (325 mg daily) after surgery, to minimize the risk of blood clots following surgery. You may alternatively purchase or use jfgc-rmk-aqtopbj generic equivalent Aspirin. If you already have ?baby? Aspirin (81mg) at home, you can take 4 ?baby? Aspirin (daily) to total 324mg for the equivalent dose. If you have gastric upset with this or a history of gastric bleeding or ulcers, do not take aspirin, please call the office for alternatives. Commence foot and ankle. knee pumps and movement with the nonoperative leg to keep your blood moving and help prevent clots. You can also obtain compression socks of antiembolism hose (LAUREN) hose from the drug store to wear on the nonoperative leg and also on the operative leg once the splint or cast is removed. Adjust your position or get up onto your crutches every hour or so just to move around. Pain Medications: It is the policy of [facility] that narcotic medications will only be refilled during office hours. Additionally, due to the alarming rate of narcotic pain medication abuse/dependence, it has become necessary for physician practices to closely manage patient use of prescription narcotic pain relievers, such as Vicodin ([place]), Percocet, and Oxycodone products. Narcotic pain management in the postoperative period may not exceed 6 weeks. If narcotic pain management is required beyond 90 days, then a referral to a Chronic Pain Specialist will be made. If a request for a medication prescription has been made, the physician must review your chart prior to authorizing the request. Please be patient with office staff. If you call during patient hours, your call may not be returned until the end of the day. Dr. Autumn Batista [place] [address] [place] [address] [email or web address] It is the policy of [facility] that narcotic medications will only be refilled during office hours. Additionally, due to the alarming rate of narcotic pain medication abuse/dependence, it has become necessary for physician practices to closely manage patient use of prescription narcotic pain relievers, such as Vicodin ([place]), Percocet, and Oxycodone products. Narcotic pain management in the postoperative period may not exceed 6 weeks. If narcotic pain management is required beyond 90 days, then a referral to a Chronic Pain Specialist will be made. If a request for a medication prescription has been made, the physician must review your chart prior to authorizing the request. Please be patient with office staff. If you call during patient hours, your call may not be returned until the end of the day. Dr. Autumn Batista [place] [address] [email or web address] Skin/Wound/Dressing Care Report to your healthcare provider any signs of infection, such as:: chills, fever, night sweats, increased pain, unusual drainage and unusual redness Visit Report/Discharge Packet Instructions: DI for Prescription Opioid Use Stand Alone Forms: Patient Portal/API Discharge Data Primary Care Provider: Jovany Leal Attending Provider: Autumn Ott Quality VTE Deep Vein Thrombosis/Pulmonary Embolism Present on Admission: No
[2024-10-13 08:00] VITALS: BP 115/77; PULSE 74; RESP 16; TEMP 36.4; O2SAT 95
--- NOTE | 2024-10-13 09:28 | PT.IPTN ---
Current Diagnoses Primary osteoarthritis, right ankle and foot (10/12/24) Flat foot [pes planus] (acquired), right foot (10/12/24) Pain due to internal orthopedic prosthetic devices, implants and grafts, initial encounter (10/12/24) Surgery Performed Operation Date: 10/12/24 07:45 Actual Procedures p Correction rigid foot deformity with subtalar fusion talonavicular joint fusion possible calcaneocuboid fusion, hardware removal ankle, possible medial calcaneal displacement osteotomy, triple arthrodesis, PERONEAL TENDON RELEASE(Right) - Autumn Ott MD Physical Therapy Treatment Note M2 PT-IP Current Condition Start: 10/12/24 16:33 Freq: NEEDED Status: Active Protocol: Document 10/13/24 08:54 SP (Rec: 10/13/24 10:14 SP Laptop) Physical Therapy Current Condition Current Condition Evaluation Date 10/12/24 Treatment Diagnosis s/p R ankle fusion; difficulty in walking Onset Date 10/12/24 M3 PT-IP Subjective Start: 10/12/24 16:33 Freq: NEEDED Status: Active Protocol: Document 10/13/24 08:54 SP (Rec: 10/13/24 10:14 SP Laptop) Subjective Physical Therapy Visit Type Type Treatment Note Visit Start Time 08:54 Visit Stop Time 09:28 Notes Vitals RUE automated during tx : supine: BP 122/74 HR 78 SaO2 97% on RA seated immediate: BP 82/59 HR 89 Nonsymptomatic seated 2 min: 126/80 HR 77 stand on LLE with FWW: 122/91 HR 87 Physical Therapy Visit Comments Patient Comments agreeable to do PT Patient Goals I plan to return home with and receive HHPT this time Therapy Pain Assessment Location Right Foot Intensity 2 Scale Used with mobility Description With Movement Pain Management Techniques Distraction,Modification of Treatment,Re-positioning, Timing of Activity with Medications M4 PT-IP Mobility and Gait Start: 10/12/24 16:33 Freq: NEEDED Status: Active Protocol: Document 10/13/24 08:54 SP (Rec: 10/13/24 10:14 SP Laptop) PT-Bed Mobility Assessment Rolling Type of Rolling Roll to Right,Roll to Left Level of Assist Independent Supine to Sit Supine to Sit Independent Sit to Supine Sit to Supine Independent Scooting Scooting to Edge of Bed Independent Scooting Up and Down in Bed Independent PT-Transfer Assessment Sit to and From Stand Sit to and from Stand Standby Assistance,Contact Guard Assistance,Use of Upper Extremities Equipment Transfer Assistive Device Gait Belt,Front Wheeled Walker Orthotic/Prosthetic Devices or Brace: Yes Transfers Transfer Destination Bed Transfer Technique Pt ambulated with FWW and Knee Scooter Transfer Ability Level of Assist Standby Assistance,Contact Guard Assistance,Use of Upper Extremities Comments Mobility Comments See patient vitals above, brief hypotensive and nonsymptomatic but recovered at 2min rest otherwise WNL. Instructed custom HEP: B QS, B SLR, SL bridge on L, side SLR on R to support strengthening and mobility. Bed mobility I. Sit<>stand with FWW gait around room 10 ft cued slower pacing improved decrease LLE advancement, Sit<>stand to knee scooter occ cues for knee scooter posiitioning set up, push from bed 1 LUE and RUE on scooter handle with pt safe locking wheels for R LE support, mobility distance room to hallway stairs approx 160 ft total SBA/ occasional , completed 1 step assimilate L HR while RUE lift front wheels scooter then back wheels onto step and hopped BUE support LLE onto step then reverse, CGA throughout. OT approached cues future don sneakers for L foot cushioning - pt stated also has L ankle brace for added support will carry over home, [employer] verbalized and pt in agreement safety of L ankle. Pt stated can help with scooter mgt as well for step and in/out car for appts. Pt returned to room SBA, occ cues to pt for slower repositioning front wheels to turn when in smaller spaces and use pivot front wheel turns forward and backward during bigger turns, improved performance with tx time. Pt returned to bed. He had call light and all needs in reach before left. Gait Assessment Gait Gait Assistance Required: Standby Assistance,Contact Guard Assist Distance (Feet) 160 Able to Maintain Weight Bearing Status Yes During Gait Assistive Devices Assistive Device None,Gait Belt,Front Wheeled Walker Orthotic/Prosthetic Devices or Brace: Yes Gait Deviations General Gait Pattern Decreased Stride Length,Step- to Gait Factors Limiting Gait Function Factors Limiting Gait Function Decreased Strength,Pain Comments Gait Comments See mobility comments gait with FWW and R knee scooter. Stair Climbing Assessment Evaluation Level of Assist On Stairs Contact Guard Assistance, Minimal Assistance,1 Person Assistance Devices Stair Climbing Assistive Devices Left Railing Technique/Endurance Stair Climbing Direction Ascend and Descend Stair Climbing Technique Step to Step Number of Steps Climbed 1 Stair Climbing Set # Repetitions (reps) 1 Comments Stair Climbing Comments See mobility comments use knee scooter manage on/off 1 step, CGA trunk at gait belt trunk, Min A support knee scooter mgt. Fwd asc/ Bwd descend. PT-Balance Assessment Sitting Balance and Reactions Static Sitting Balance Ability Normal Dynamic Sitting Balance Ability Normal Standing Balance and Reactions Static Standing Balance Ability Good Dynamic Standing Balance Ability Good Device Used FWW and R knee scooter M5 PT-IP Objective Assessments Start: 10/12/24 16:33 Freq: NEEDED Status: Active Protocol: Document 10/12/24 13:45 AB (Rec: 10/12/24 17:08 AB [id number]) Orientation Orientation/Cognition Level of Alertness Confusional State Orientation Name,Situation Safety Awareness Decreased Safety Awareness Memory Description Short Term Impaired Gross Range of Motion Lower Extremity ROM Assessment Right Impaired Impairments R ankle on soft cast Strength Lower Extremity Strength Assessment Right Impaired Ankle NT Sensation Assessment Sensation Sensation Description Numbness Comments Sensation Comments RLE numbness and stated that he has has LE neuropathy Muscle Tone Muscle Tone WNL Yes M6 PT-IP Treatment Start: 10/12/24 16:33 Freq: NEEDED Status: Active Protocol: Document 10/13/24 08:54 SP (Rec: 10/13/24 10:14 SP Laptop) Physical Therapy Treatment Education Education Provided Precautions,Weight Bearing Status,Safety Other Treatments Other Treatment Performed B LAQ, B SLR, R side hip abd, L SL bridge, provided HO M7 PT-IP Assessment and Plan Start: 10/12/24 16:33 Freq: NEEDED Status: Active Protocol: Document 10/13/24 08:54 SP (Rec: 10/13/24 10:14 SP Laptop) PT Summary Assessment and Plan Potential Rehabilitation Potential Fair Status of Condition at Evaluation Evolving Summary Impairments Pain,ROM,Strength,Balance, Coordination,Sensation,Tone, Cognition,Bed Mobility, Transfers,Gait,Activity Tolerance Progress Towards Goals Progressing Toward Goals Assessment Summary Pt improved vitals and mobility this tx. I bed mobility, CG>SBA transfers to FWW and Knee scooter, gait FWW and Knee scooter CG>SBA, 1 step mgt with knee scooter CG/ Min A for knee scooter mgt support. Recommending HHPT when pt cleared to return home with for continue strengthen, mobility and home carryover trng. Provided HOs for HEP. Goals Bed Mobility Goal Independent Transfer Goal Independent Gait Goal Independent Gait Distance 150 Other Goals to use knee scooter for transfer and ambulation up/down one step using knee scooter CGA Days to Meet Goals 5 Frequency of Treatment Frequency Of Treatment Once a Day Treatment Plan Physical Therapy Treatment Plan Bed Mobility Training,Transfer Training,Gait Training, Therapeutic Exercise,Balance Retraining,Post Op Education, Discharge Planning,Hot or Cold Pack,Neuromuscular Re-ed, Coordination Retraining,Manual Therapy Other Recommendations and Next Treatment Continue reps for step mgt, Focus practice turns with knee scooter, review HEP. Weight Bearing Status Weight Bearing Status Non-Weight Bearing Allowed Weight Bearing Amount (enter % Per operative note , pt to be or #) (%) NWB for RLE for 8 weeks. Recommendations To Nursing Amount of Assist Needed Standby Assistance,1 Person Assist Discharge Recommendations PT Discharge Recommendations Home with 26/01 Assist Available,Home Health Transportation Needs at Discharge Private Vehicle - PT assist 1
[2024-10-13] MEDS: polyethylene glycoL 3350 17 GM POWD.PACK PO (09:29)
[2024-10-13] MEDS: DOCUSATE 100 MG CAPSULE PO (09:30)
[2024-10-13] MEDS: ASPIRIN EC 325 MG TABLET PO (09:30)
[2024-10-13] MEDS: dilTIAZem CD 120 MG CAP PO (09:30)
[2024-10-13] MEDS: FLECAINIDE 100 MG TABLET PO (09:30)
[2024-10-13] MEDS: SERTRALINE 50 MG TABLET PO (09:30)
--- NOTE | 2024-10-13 09:30 | OT.IP.TRT ---
Current Diagnoses Primary osteoarthritis, right ankle and foot (10/12/24) Flat foot [pes planus] (acquired), right foot (10/12/24) Pain due to internal orthopedic prosthetic devices, implants and grafts, initial encounter (10/12/24) Surgery Performed Operation Date: 10/12/24 07:45 Actual Procedures p Correction rigid foot deformity with subtalar fusion talonavicular joint fusion possible calcaneocuboid fusion, hardware removal ankle, possible medial calcaneal displacement osteotomy, triple arthrodesis, PERONEAL TENDON RELEASE(Right) - Autumn Ott MD Occupational Therapy Treatment Note M2 OT-IP Current Condition Start: 10/12/24 13:43 Freq: Status: Active Protocol: Document 10/12/24 16:03 CCC (Rec: 10/12/24 16:25 CCC Desktop) Occupational Therapy Current Condition Current Condition Evaluation Date 10/12/24 Treatment Diagnosis Right ankle sx Diagnosis Onset Date 10/12/24 Weight Bearing Status Weight Bearing Status Non-Weight Bearing Allowed Weight Bearing Amount (enter % Per operative note , pt to be or #) (%) NWB for RLE for 8 weeks. M3 OT- IP Subjective and Pain Start: 10/12/24 13:43 Freq: Status: Active Protocol: Document 10/13/24 10:28 CCC (Rec: 10/13/24 10:41 [facility] Desktop) OT- Subjective Occupational Therapy Visit Type Type Treatment Note Visit Start Time 09:23 Visit Stop Time 09:46 Occupational Therapy Visit Comments Patient Comments Pt agreed to get dressed and use the toilet. Patient/Caregiver Goals To go home. OT Pain Assessment Pain When Pain Assessed At Rest Pain Present Pain Present Pain Reported Location Right Foot Intensity 1 Scale Used Numeric (0 - 10) M4 OT- IP ADL's Start: 10/12/24 13:43 Freq: Status: Active Protocol: Document 10/13/24 10:28 CCC (Rec: 10/13/24 10:41 [facility] Desktop) OT TPC-Ipln-Arbgfyl General Evaluation Self-Feeding Ability Independent OT ADL-Dressing General Eval Upper Body Dressing Ability Independent Lower Body Dressing Ability Standby Assistance Comments OT Dressing Comments Pt able to get dressed while supine in the bed. Pt needing reminders not to put weight on his R foot while bridging in bed. OT ADL-Toileting General Evaluation Toileting Ability Contact Guard Assistance Comments OT Toileting Comments Pt able to use FWW to hop into the bathroom and needing CGA for balance as having one lose of balance. Educated easier to use the scooter as able to rest his right knee on the scooter to increased ease to papo/doff his pants/underwear. OT ADL-Bathing Comments OT Bathing Comments Pt will benefit from assist. M5 OT- IP IADL's Start: 10/12/24 13:43 Freq: Status: Active Protocol: Document 10/12/24 16:03 [facility] (Rec: 10/12/24 16:25 [facility] Desktop) OT-Instrumental Activities of Daily Living Home Safety Awareness Home Safety Comments Pt is still groggy but insistent that he is able to do well at home with all his needs. M6 OT- IP Functional Cognition Start: 10/12/24 13:43 Freq: Status: Active Protocol: Document 10/13/24 10:28 [facility] (Rec: 10/13/24 10:41 [facility] Desktop) Cognitive Factors Limiting Selfcare Function Cognitive Ability Level of Alertness Alert Patient Orientation Name,Age,Birthday,Month,Date, Year,Day of Week,Place, Situation Attention Span Ability Capable of Focused Attention, Capable of Sustained Attention Ability to Follow Commands Able to Follow One Step Commands Cognitive Comments Cognitive Assessment Comments Pt much more alert today. Pt still needing cues to slow down and take his time. M7 OT- IP Mobility and Balance Start: 10/12/24 13:43 Freq: Status: Active Protocol: Document 10/13/24 10:28 [facility] (Rec: 10/13/24 10:41 [facility] Desktop) OT- Bed Mobility Assessment Supine to Sit Supine to Sit Assist Independent Sit to Supine Sit to Supine Assist Independent OT-Transfer Assessment Sit to and From Stand Sit to and from Stand Standby Assistance Transfers Transfer Ability Standby Assistance,Contact Guard Assistance Technique Transfer Destination Bed,Toilet Transfer Technique Stand Step Pivot Devices Transfer Assistive Devices Gait Belt,Front Wheeled Walker Comments Mobility Comments Pt needing CGA for loss of balance while trying to papo/ doff his pants. OT- Balance Assessment Sitting Balance and Reactions Static Sitting Balance Ability Good Dynamic Sitting Balance Ability Good Standing Balance and Reactions Static Standing Balance Ability Fair Dynamic Standing Balance Ability Fair Comments Other Balance Tests/Deviations/Treatment Pt doing much better today and : mostly SBA with scooter and FWW. Pt had one lose of balance while papo/doff pants and suggested to use the scooter so able to rest his right knee on the scooter for increased ease of papo/doffing his underwear/pants. Pt to go home with 24/7 assist and home health. M8 OT- IP Objective Assessments Start: 10/12/24 13:43 Freq: Status: Active Protocol: Document 10/12/24 16:03 [facility] (Rec: 10/12/24 16:25 [facility] Desktop) OT Gross Range of Motion Upper Extremity Range of Motion Assessment Within Functional Limits OT Strength Upper Extremity Strength Assessment Within Functional Limits Comments Strength Comments WFL for needs. M9 OT- IP Assessment and Plan Start: 10/12/24 13:43 Freq: Status: Active Protocol: Document 10/13/24 10:28 [facility] (Rec: 10/13/24 10:41 [facility] Desktop) OT Summary Assessment and Plan Potential Rehabilitation Potential Good Analytic Complexity at Evaluation Low Summary OT Impairments Pain,Strength,Balance, Functional Mobility,Self- Feeding,Grooming,Dressing, Toileting,Shower Transfers, Activity Tolerance Progress Towards Goals Slow Progress due to Pain Assessment Summary Pt much more alert today and moving better. Pt to go home with 24/7 assist and home health. Goals Self-Feeding Goal Independent Grooming Goal Independent Dressing Goal Independent Toileting Goal Independent Bathing Goal Minimal Assistance Toilet Transfer Goal Independent Shower Transfer Goal Contact Guard Assistance Days to Meet Goals 5 Frequency of Treatment Other frequency 5x/week Treatment Plan OT Treatment Plan ADL Training,Functional Mobility,Patient/Family Education,Discharge Planning Discharge Recommendations OT Discharge Recommendations Home with 24/7 Assist Available,Home Health Transportation Needs at Discharge Private Vehicle
--- NOTE | 2024-10-13 10:47 | CM.DANOTE ---
Patient is a 74 yo male who [place] [facility] [place]le/foot fusion and equipment repair. Pt has [facility] for insurance and his PCP is Dr. Jovany Leal. EMR was reviewed. Per Ortho, pt with hx of similar on his other ankle and tolerated this procedure well and to work with PT/OT this moring and plan of discharge home later today and no identified barriers to discharge. Per PT/OT, pt did better today and recommending home with spouse assist and HH. SW met bedside with pt and explained role as OT working with patient and he confirms he lives at home in [place] with his and is quite active and independent at baseline, still drives, does not use DME for ambulation and even works out at [employer]. Pt confirms his preferfence is to discharge home today and spouse can transport and he has no hx of HH or SNF but states they did not use HH after his other ankle surgery and they feel HH would be beneficial at d/c. SW provided HH Choice list and no preference and [facility] referral made based on Vendor Calendar. Pt very appreciative. [facility] confirms they can accept referral and F2F and HH orders included in referral. SW updated RN. Plan; Patient to d/c home today via spouse POV and new [facility] HH to follow. LYN Phelan Discharge Planning/Care Management Pre-Anesthesia Assessment Start: 10/05/24 09:58 Freq: Status: Active Protocol: Document 10/11/24 13:03 CAB (Rec: 10/05/24 10:17 LB [id number]) Pre-Anesthesia Assessment PAC Comment 10/05/24 Chart review. Patient Information Reviewed Via Chart Review Diagnostic Results BMP/CMP,CBC,Other Comment 09/13/24 outside report. Primary Care Provider Jovany Leal Seen Specialist in Last 12 Months Yes Specialist Seen Orthopedist Primary Language [place] Preferred Language [place] Height 182.88 cm Weight 89.811 kg Body Mass Index (BMI) 26.8 Hx Anesthesia Reactions Yes: Trouble waking up Anesthesia Review Requested No Ore Mixer No alcohol intake former Smoking Status Never smoker Musculoskeletal Symptoms Joint Pain Is patient on oxygen? No Hx Sleep Apnea Yes Currently Taking a Beta Tanja No Anti-Coagulant Therapy No Has a Admin Prog Coord Yes: Visit 08/11/[address] Kelley Cardiac Testing Yes: Echo @ [facility] Hx Pacemaker/ICD No Comment Cardiac records scanned and in surgery folder Urinary Catheter Present No Hx Urinary Self Catheterization No Diabetes No HgbA1C 4.5 Date 07/11/23 Presence of External or Internal Medical Yes: left knee, mele ankles, Devices cervical hardware, R IOL Received a COVID vaccine? Yes Marital Status Lives With spouse Patient Discharge Plan Description Return Home Emergency Contact Name Kirstie Hicks - Emergency Contact Advance Directives? Yes Advance Directives on File No
--- NOTE | 2024-10-13 10:54 | PC.NURSE ---
Day shift: Discharge instructions gone over with patient and patient's SO. All questions answered, they both stated understanding. PIV removed prior to d/c. All belongings with patient. PCT Paulo escorted patient via wheelchair to exit.
== END 2024-10-13 10:35 | disposition home or self-care (01) ==
LOC: OR 07:00 → AC 12:24
PROVIDERS: Family Provider Family Medicine; PCP Family Medicine; Referring Provider Orthopaedic Surgery Foot and Ankle Surgery; Visit Provider Orthopaedic Surgery Foot and Ankle Surgery
PROC: (CPT 28715; principal; 2024-10-12 07:45)
DX: M19.171 Post-traumatic osteoarthritis, right ankle and foot (principal); M21.41 Flat foot [pes planus] (acquired), right foot; T84.84XA Pain due to internal orthopedic prosthetic devices, implants and grafts, initial encounter; T84.213A Breakdown (mechanical) of internal fixation device of bones of foot and toes, initial encounter; G89.18 Other acute postprocedural pain; M21.071 Valgus deformity, not elsewhere classified, right ankle
CPT/HCPCS: 28715; 20680; 27691; 28300; 36415; 64450; 73610; 76000; 80048; 85025; 97116; 97162; 97165; 97530; 97535; C1713; J0171; J0330; J0666; J0690; J1100; J1171; J2250; J2405; J2704; J3010